=== PATIENT | female | born 1945 | race Caucasian/White ===

== ENCOUNTER 2016-07-27 07:37 | Inpatient (IN) ==
--- NOTE | 2016-07-27 08:33 | History and Physical Update ---
Sedation H&P Update - History and Physical H&P was reviewed, the patient examined and there: are no changes in the patients condition since last H&P was completed. (The patient reports today for CT guided left lung biopsy. The patient has been off Plavix for one week.) - Dictation Physical: refer to scanned H&P - Sedation Plan for Sedation: minimal Patient Consent: Procedure disscussed with patient and patinet has consented., Risks and benefits were discussed with patient,including infection,, bleeding, injury to surrounding structures, seizure, temporary nerve, Patient understands and accepts potential risks/benefits and agrees to, proceed. ASA Class: I Airway Assessment: Class I: Soft palate, uvula, fauces, pillars visible
[2016-07-27] MEDS: SODIUM CHLORIDE 0.45% 1,000 ML IV SCH ×2 (08:55→20:19)
[2016-07-27] MEDS ORDERED: DIAZEPAM 5 MG TABLET PO ONE (08:59)
[2016-07-27 09:09] LABS: PT Patient Result 10.1 SECS
[2016-07-27] MEDS ORDERED: DIAZEPAM 5 MG TABLET ONE (09:48)
--- NOTE | 2016-07-27 11:58 | XRay Report ---
History: Left lung mass now post lung biopsy Date: 07/27/2016 Study: Chest x-ray post procedure inspiration/expiration Comparison exam: CT chest June 24, 2016 There is a small left apical pneumothorax measuring roughly 5%. There is some patchy postbiopsy change in the left upper lung. There is no mediastinal shift. The lungs and pleural spaces are otherwise clear. The cardiac silhouette is upper normal in size. There is mild thoracic spondylosis. Impression: Small left apical pneumothorax post biopsy. The patient will have a 3 hour follow-up postprocedure chest x-ray. PROCEDURE INTERPRETED AT [facility] DEPARTMENT OF RADIOLOGY Final Report Signed by: Dr. Odalys Unger
--- NOTE | 2016-07-27 12:12 | Post Interventional Procedure ---
Pre-op diagnosis: Left upper lung nodule Post-op diagnosis: same Procedure: CT-guided left upper lung biopsy Radiologist: Odalys Unger Anesthesia: local Specimens: other (2 20 gauge core samples ssnt to Pathology) Estimated blood loss: none Condition: stable Description/Findings: A formal timeout was performed. Patient was placed prone on the CT table and gaming director imaging obtained. The dorsal skin overlying the target lesion was prepped and draped in a sterile fashion. 5 cc 1% lidocaine was injected. Under CT fluoroscopic guidance, a 19-gauge guide needle was advanced into the lesion. Two 20-gauge core biopsies were obtained. Specimen was sent for routine pathology. The needle was removed and final CT imaging showed small less than 5% pneumothorax. Patient tolerated the procedure well. Impression: CT-guided biopsy left upper lobe lung nodule Assessment and Plan - Time spent with patient Time spent with patient: Less than 30 minutes
--- NOTE | 2016-07-27 12:15 | CT Report ---
History: Left upper lung nodule Date: 07/27/2016 Study: CT-guided left upper lung biopsy Comparison exam: CT chest June 24, 2016 CT-GUIDED BIOPSY LEFT UPPER LUNG Description: A formal timeout was performed. Patient was placed prone on the CT table and medical scribe imaging obtained. The dorsal skin overlying the target lesion was prepped and draped in a sterile fashion. 5 cc 1% lidocaine was injected. Under CT fluoroscopic guidance, a 19-gauge guide needle was advanced into the lesion. Two 20-gauge core biopsies were obtained. Specimen was sent for routine pathology. The needle was removed and final CT imaging showed small less than 5% pneumothorax. Patient tolerated the procedure well. Impression: CT-guided biopsy left upper lobe lung nodule. This CT exam was performed using one or more the following dose reduction techniques: Automated exposure control, adjustment of the MA and/or KV according to patient size, or use of iterative reconstruction technique. PROCEDURE INTERPRETED AT [facility] DEPARTMENT OF RADIOLOGY Final Report Signed by: Dr. Odalys Unger
--- NOTE | 2016-07-27 15:26 | Event Note ---
The previous left-sided pneumothorax has enlarged since earlier study. Chest tube placement and overnight observation are recommended as discussed with the patient. Dr. Tony was also notified of the plan for chest tube placement
--- NOTE | 2016-07-27 15:27 | XRay Report ---
History: Pneumothorax following lung biopsy Date: 07/27/2016 at 2:41 PM Study: Chest x-ray inspiration and expiration Comparison exam: Chest x-ray 07/27/2016 11:42 AM There is a moderate-sized pneumothorax on the left which is increased in size since the earlier study. The chest otherwise unchanged. Impression: Enlarging left-sided pneumothorax PROCEDURE INTERPRETED AT [facility] DEPARTMENT OF RADIOLOGY Final Report Signed by: Dr. Odalys Unger
--- NOTE | 2016-07-27 16:17 | Post Interventional Procedure ---
Pre-op diagnosis: Pneumothorax Post-op diagnosis: same Procedure: CT-guided placement of left chest tube Radiologist: Odalys Unger Anesthesia: local Specimens: none sent Estimated blood loss: none Complications: none Condition: stable Description/Findings: A formal timeout was performed. A left pneumothorax was identified with CT. The left lateral chest wall was prepped and draped in sterile fashion. Under CT guidance, an 8 Telugu pigtail catheter was advanced into the pleural space using trocar technique. A captured CT image documents initial needle position. The left pleural drainage catheter is to be hooked to Pleur-evac drainage. A bandage was placed at the catheter site. The patient tolerated the procedure well. Chest radiograph is pending. Impression: CT-guided placement of left chest tube. Assessment and Plan - Time spent with patient Time spent with patient: Less than 30 minutes
--- NOTE | 2016-07-27 16:20 | CT Report ---
History: Pneumothorax Date: 07/27/2016 Study: CT-guided placement of left chest tube Comparison exam: Chest x-ray earlier today Description: A formal timeout was performed. A left pneumothorax was identified with CT. The left lateral chest wall was prepped and draped in sterile fashion. Under CT guidance, an 8 Kinyarwanda pigtail catheter was advanced into the pleural space using trocar technique. A captured CT image documents initial needle position. The left pleural drainage catheter is to be hooked to Pleur-evac drainage. A bandage was placed at the catheter site. The patient tolerated the procedure well. Chest radiograph is pending. Impression: CT-guided placement of left chest tube. PROCEDURE INTERPRETED AT [facility] DEPARTMENT OF RADIOLOGY Final Report Signed by: Dr. Odalys Unger
--- NOTE | 2016-07-27 17:20 | XRay Report ---
XR chest post procedure Indication: Status post chest tube insertion. Comparison: AP chest 07/27/2016; 1441 hours Technique: Portable AP chest with inspiration and expiration. Findings: Interval placement of percutaneous chest tube within the left lower chest is demonstrated. There is much improved appearance of the left-sided pneumothorax the superior pleural line displaced 15 mm to 16 mm from the inferior margin of the second rib. Left upper lung density is stable. There is no evidence of interval hemorrhage. Lungs otherwise are clear. Heart size and mediastinal contour appears stable. Bones and soft tissues are otherwise stable. Impression: 1. Improved appearance of left-sided pneumothorax. Superior pleural line is displaced 15-16 mm from the inferior margin of the left second rib. 2. Otherwise stable chest. 07/27/2016 5:15 PM PROCEDURE INTERPRETED AT [facility] DEPARTMENT OF RADIOLOGY Final Report Signed by: Dr. Stephon Scott
[2016-07-27] MEDS: HYDROmorphone 2 MG/1 ML VIAL IV PRN ×2 (18:15→21:48)
[2016-07-27] MEDS ORDERED: ONDANSETRON 4 MG/2 ML VIAL IV PRN (20:00)
--- NOTE | 2016-07-27 21:03 | Pulmonology History & Physical ---
Assessment and Plan (1) Pneumothorax, post biopsy, left Status: Acute Assessment and plan: She has had a catheter placed and will watch her for now. Current Visit: Yes (2) Pulmonary nodule Status: Acute Assessment and plan: She had a needle biopsy of the pulmonary nodule. Current Visit: Yes (3) Hypertension Status: Acute Assessment and plan: Her vital signs been stable and she is reasonably comfortable now Current Visit: Yes - Constitutional Constitutional: Absent: chills, fever(s), weight loss - EENT Eyes: Absent: loss of vision Ears: Absent: decreased hearing Nose, mouth and throat: Present: headache(s), nasal congestion - Cardiovascular Cardiovascular: Present: chest pain at rest, dyspnea. Absent: orthopnea, palpitations, PND - Respiratory Respiratory: Absent: hemoptysis, wheezing, change in phlegm color - Gastrointestinal Gastrointestinal: Absent: abdominal pain, change in bowel habits, dysphagia, nausea, vomiting - Genitourinary Genitourinary: Absent: difficulty urinating, dysuria, urinary frequency - Musculoskeletal Musculoskeletal: Present: arthralgias, myalgias - Neurological Neurological: Present: headache(s). Absent: abnormal speech, focal weakness, paresthesias History of Present Illness Chief complaint: Left pneumothorax History of present illness: Ms. Gill is a 70 year old white female that apparently was found to have a pulmonary nodule in her left upper lobe. She is lifetime non-smoker and is not really had any lung problems. The pulmonary nodule was lightly PET positive. Because of this she came in for needle biopsy today. This was done under CT she did develop a pneumothorax afterwards. She has had a catheter placed and will be admitted for observation. She is having quite a bit of discomfort from the small chest tube but her breathing is doing okay. Home Medications Medication Instructions Recorded Confirmed Type Amitriptyline HCl 50 mg PO BEDTIME 07/26/16 07/27/16 History Atenolol 50 mg PO DAILY 07/26/16 07/27/16 History Butalb/Acetaminophen/Caffeine 1 each PO Q4-6H PRN 07/26/16 07/27/16 History [Fioricet 50-300-40 mg Capsule] Clopidogrel [Plavix] 75 mg PO DAILY 07/26/16 07/27/16 History Verapamil HCl [Verapamil ER Cap] 180 mg PO DAILY 05/22/17 05/23/17 History Allergies Allergy/AdvReac Type Severity Reaction Status Date / Time Penicillins Allergy Unknown Unknown/Unable Verified 07/27/16 07:55 to obtain Sulfa (Sulfonamide Allergy Unknown Unknown/Unable Verified 07/27/16 07:55 Antibiotics) to obtain Medical,Surgical,& Family Hx - Medical History Cardio: History of: Hypertension Psychological: No history of: Anxiety Disorders, ADHD, Behavior Problems, Bipolar Disorder, Depression, Previous Suicide Attempt, Psychiatric/Substance Abuse Tx, Schizophrenia, Violent Behavior, Psychiatric Problems Neurology: History of: Cerebrovascular Accident (18 yrs), Migraine No history of: Seizures HEENT: History of: Eye Problem (GLASSES) Respiratory: History of: COPD (DR TORRES) No history of: Respiratory Problems (FLU VAC-NO;PNEU VAC- YES. LEFT LUNG MASS) Genitourinary: History of: Kidney Stones Gastrointestinal: History of: GI Problems (GALLBLADDER) Musculoskeletal: History of: Musculoskeletal Problems (LT KNEE OA) - Surgical History HEENT Surgeries: Surgical HX of: Tonsilectomy & Adenoidectomy Abdominal Surgeries: Surgical HX of: Colonoscopy (DR BRAXTON) Reproductive Surgeries: Surgical HX of;: Hysterectomy (PARTIAL) Orthopedic Surgeries: Surgical HX of;: Orthopedic Surgery (LT CARPAL TUNNEL) - Social History Smoking Status: Never smoker Frequency of Alcohol Use: None Type of Drug Use: None Results - Diagnostic Findings Procedure: Chest x-ray: image reviewed by me, report reviewed by me (Chest x- ray showed about a 30% pneumothorax after the procedure.) Quality Measures - Stroke Symptom Onset Unknown: No Exam (Pulmonay) H&P - Constitutional Vitals: Period Temp Pulse Resp BP Sys/Noble Pulse Ox Last 24 Hr 97.1 F-98.8 F 46-68 14-20 98-159/45-80 93-98 General appearance: normal weight, mild distress (She has mild discomfort with a chest tube) - Head Head exam: Present: normal inspection, normocephalic - Eye Eye exam: Present: EOMI. Absent: scleral icterus Pupils: Present: ERIK - ENT ENT exam: Present: normal exam - Neck Neck exam: Present: normal inspection. Absent: lymphadenopathy, thyromegaly - Respiratory Respiratory exam: Present: decreased breath sounds (She has very mild decreased breath sounds on the left. She has a pneumothorax catheter in place.). Absent : rhonchi, wheezes - Cardiovascular Cardiovascular exam: Present: regular rate and rhythm. Absent: gallop, systolic murmur - GI/Abdominal GI/Abdominal exam: Present: normal bowel sounds, soft. Absent: organomegaly, tenderness - Extremities Exam Extremities exam: Absent: calf tenderness, edema - Neurological Exam Neurological exam: Present: alert, oriented X3, CN II-XII intact - Psychiatric Psychiatric exam: Present: normal affect - Skin Skin exam: Present: warm, dry
[2016-07-27] MEDS ORDERED: BUTALBITAL/ACETAMIN/CAFFEINE 50-325-40 MG TABLET PO PRN (21:07)
[2016-07-27] MEDS: AMITRIPTYLINE 50 MG TABLET PO SCH (21:48)
[2016-07-28] MEDS: HYDROmorphone 2 MG/1 ML VIAL IV PRN ×3 (05:34→16:20)
--- NOTE | 2016-07-28 08:58 | Event Note ---
No evidence of pneumothorax on this mornings chest xray. Will have the nurses clamp the tube and repeat chest xray at noon.
--- NOTE | 2016-07-28 09:02 | XRay Report ---
History: Pneumothorax following lung biopsy Date: 07/28/2016 at 8:33 AM Study: Chest x-ray PA and lateral Comparison exam: 07/27/2016 The left basilar chest tube is still in place. There is no evidence of a pneumothorax. The postbiopsy change in the left upper lung has improved. There is no new or worsening infiltrate. The cardiomediastinal silhouette is unchanged. There is mild strandy subsegmental atelectasis in the left lung base. Osseous structures are stable. Impression: No evidence of a pneumothorax PROCEDURE INTERPRETED AT [facility] DEPARTMENT OF RADIOLOGY Final Report Signed by: Dr. Odalys Unger
[2016-07-28] MEDS: SODIUM CHLORIDE 0.45% 1,000 ML IV SCH (09:19)
[2016-07-28] MEDS: ATENOLOL 50 MG TABLET PO SCH (09:19)
[2016-07-28] MEDS: VERAPAMIL SR 180 MG TABLET PO SCH (09:19)
--- NOTE | 2016-07-28 09:39 | Pulmonology Progress Note ---
Pulmonary - PN: Subj Interval history: This 70-year-old white female had a left upper lobe 1.5 cm lung nodule that showed increased uptake on PET scan. It was actually borderline as far as being hot. It was not calcified. She had some other calcified areas suggesting granulomatous disease. We decided to have her have a needle biopsy. That was done yesterday. She developed a pneumothorax. She has a left pleural catheter in place. Chest x-ray this morning shows a lung well expanded. Dr. Unger has clamped the chest tube and will see if the lung stays up. Hopefully she can be discharged later today. She is having some pleuritic pain on the left side. Hopefully this will resolve with removal of the chest tube. Pathology report is not out yet on the needle biopsy. Exam (Progress Note) - Constitutional Vitals: Period Temp Pulse Resp BP Sys/Noble Pulse Ox Last 24 Hr 97.1 F-98.8 F 46-70 14-20 98-159/45-80 93-98 Exam: Patient is alert. Vital signs normal. Pupils react to light. Throat is clear. Neck supple no bruits. Chest reveals a few rhonchi on the left side. The right lung is clear. Heart normal rate and rhythm no murmurs. Abdomen soft no masses. Extremities no clubbing cyanosis or edema. Calves nontender. Results - Diagnostic Findings Procedure: Chest x-ray: image reviewed by me (Pleural catheter on left side. Left lung fully expanded.) Assessment and Plan (1) Pneumothorax, post biopsy, left Status: Acute Assessment and plan: Chest x-ray to be done around noon with the pleural catheter clamped. Hopefully it can be removed at that time. If pneumothorax recurs suction will need to be reapplied. Patient does need some pain medication Current Visit: Yes (2) Pulmonary nodule Status: Acute Assessment and plan: Left upper lobe noncalcified slightly PET + 1.5 cm nodule. Patient has never been a smoker. Pathology should be out today or tomorrow. Current Visit: Yes Specialty Discharge - Follow Up or Referrals Follow up with: Bart Lane MD [Physician] - (follow up as scheduled or office will call with results. )
--- NOTE | 2016-07-28 12:47 | Pathology Report from [facility] ---
[facility] ACCESSION # : [id number] PATIENT NAME : Erma Buckner ORDERING DR : KARL SCHWARZ MD CLINICAL HX: Mildly hyper metabolic on PET scan - Left SPN POST-OP DX: Same SPECIMEN INFO: Left lung mass, ok cut CT biopsy x 2 GROSS DESCRIPTION: Received in formalin labeled ERMA BUCKNER & LT LUNG MASS are two wedge shaped tissue fragments measuring 1.3 x 0.1 cm each, submitted in one cassette. DIAGNOSIS FOR ERMA BUCKNER: LEFT LUNG MASS BIOPSY: Well-differentiated pulmonary adenocarcinoma, lepidic pattern. COLLECTED DATE: 07/27/2016 [facility] REPORT DATE: 07/28/2016 ELECTRONICALLY SIGNED BY: Caroline Larose M.D. 07/28/2016 - 10:45:02 JAMILAH
--- NOTE | 2016-07-28 12:55 | XRay Report ---
History: Pneumothorax. Chest tube clamped Follow-up chest x-ray Date: 07/28/2016 at 12:29 PM Study: Chest x-ray PA and lateral Comparison exam: 07/28/2016 at 8:33 AM Initial chest x-ray was performed after chest tube has been clamped for 4 hours. There is no pneumothorax. There is some minor soft tissue emphysema in the lower left chest wall laterally adjacent to the pigtail drainage catheter. Following chest tube removal, no pneumothorax is seen. Exam is otherwise unchanged. Impression: No evidence of a pneumothorax following chest tube removal PROCEDURE INTERPRETED AT [facility] DEPARTMENT OF RADIOLOGY Final Report Signed by: Dr. Odalys Unger
--- NOTE | 2016-07-28 13:00 | Event Note ---
No pneumothorax following chest tube removal. Patient reports less chest discomfort. Will allow patient to go home this afternoon.
--- NOTE | 2016-07-28 16:25 | Event Note ---
The pathology report has returned on the needle biopsy and it shows adenocarcinoma. It is in the left upper lobe and approximately 1.5 cm in size. She has some other tiny nodules that are mostly calcified and probably old granulomatous disease. There is no demonstrated adenopathy on CT. Patient is a non-smoker. I think this is likely stage I disease. I have talked with the patient and her daughter. They are interested in proceeding with surgery as soon as it can be done. I discussed the case with Dr. Yu, and he is going to see the patient this afternoon. She currently has been off Plavix for 8 days. She had a small stroke about 16 years ago and has been on Plavix ever since that time. She is of course worried about having another stroke. I think it would be best if we could proceed with resection of the left upper lobe tumor while she is holding at this time. Would leave the decision to Dr. Jeannie Cordon as to whether to do this with video-assisted thoracic surgery and a wedge resection versus a left upper lobectomy.
--- NOTE | 2016-07-28 18:25 | Cardiothoracic Consult ---
Assessment and Plan - Time spent with patient Time spent with patient: Greater than 30 minutes (1) Pneumothorax, post biopsy, left Status: Acute Current Visit: Yes (2) Pulmonary nodule Status: Acute Assessment and plan: 62-year-old female with clinical stage I left upper lobe lung cancer. The patient had a CT scan and the PET scan which showed the lesion however it was negative for any lymphadenopathy. The patient was admitted for pneumothorax after the needle biopsy. I discussed risks and benefits and alternatives of VATS left upper lobectomy with mediastinal lymph node dissection with the patient. The patient and her daughter understand and they are willing willing and eager to proceed. I would first obtain pulmonary function test results from Dr. Lane as well as a cardiology clearance prior to proceeding with the surgery. This was also discussed with the patient. Current Visit: Yes History of Present Illness - Data of Consult Patient: new to practice Consult date: 07/28/16 Requesting Physician: Bart Lane - Consult Narrative Reason for consult: Left upper lobe lung cancer History of present illness: Ms. Gill is a 70 year old female who was found to have a left upper lobe lesion on chest x-ray. She had no symptoms. She denies cough or hemoptysis. A CAT scan was obtained which confirmed the presence of 1.8 cm lesion in the left upper lobe. A PET scan was obtained and it showed minimal avidity however a biopsy was taken and path showed non-small cell lung cancer specifically adenocarcinoma. No lymph nodes were noted. The patient was admitted for observation as she was noted to have some pneumothorax after the procedure. Of note the patient did have CVA 16 years ago and she has been on Plavix since. She has a completely occluded right carotid artery and no disease noted on the left carotid artery on a CT angiogram obtained a few months ago by Dr. Pires. CC: Bart Lane MD - Home Medications and Allergies Home Medications: Home Medications Medication Instructions Recorded Confirmed Type Amitriptyline HCl 50 mg PO BEDTIME 07/26/16 07/27/16 History Atenolol 50 mg PO DAILY 07/26/16 07/27/16 History Butalb/Acetaminophen/Caffeine 1 each PO Q4-6H PRN 07/26/16 07/27/16 History [Fioricet 50-300-40 mg Capsule] Clopidogrel [Plavix] 75 mg PO DAILY 07/26/16 07/27/16 History Verapamil HCl [Verapamil ER Cap] 180 mg PO DAILY 07/26/16 07/27/16 History Allergies/Adverse Reactions: Allergies Allergy/AdvReac Type Severity Reaction Status Date / Time Penicillins Allergy Unknown Unknown/Unable Verified 07/27/16 07:55 to obtain Sulfa (Sulfonamide Allergy Unknown Unknown/Unable Verified 07/27/16 07:55 Antibiotics) to obtain 12 point system: reviewed and no additional remarkable complaints except as stated (HPI) Medical,Surgical,& Family Hx - Medical History Cardio: History of: Hypertension Psychological: No history of: Anxiety Disorders, ADHD, Behavior Problems, Bipolar Disorder, Depression, Previous Suicide Attempt, Psychiatric/Substance Abuse Tx, Schizophrenia, Violent Behavior, Psychiatric Problems Neurology: History of: Cerebrovascular Accident (16 yrs), Migraine No history of: Seizures HEENT: History of: Eye Problem (GLASSES) Respiratory: History of: COPD (DR LANE) No history of: Respiratory Problems (FLU VAC-NO;PNEU VAC- YES. LEFT LUNG MASS) Genitourinary: History of: Kidney Stones Gastrointestinal: History of: GI Problems (GALLBLADDER) Musculoskeletal: History of: Musculoskeletal Problems (LT KNEE OA) - Surgical History HEENT Surgeries: Surgical HX of: Tonsilectomy & Adenoidectomy Abdominal Surgeries: Surgical HX of: Colonoscopy (DR BRAXTON) Reproductive Surgeries: Surgical HX of;: Hysterectomy (PARTIAL) Orthopedic Surgeries: Surgical HX of;: Orthopedic Surgery (LT CARPAL TUNNEL) - Social History Smoking Status: Never smoker Frequency of Alcohol Use: None Type of Drug Use: None Physical Examination Vital Signs Pulse Resp BP Pulse Ox 57 L 18 130/71 95 07/27/16 09:52 07/27/16 09:52 07/27/16 09:52 07/27/16 09:52 General: Present: Appears Well HEENT: Present: PERRL Neck: Present: Supple Neck Cardiac: Present: Reg Rate and Rhythm Lungs: Present: Normal Exam, Clear Ascult./Percussion Neuro: Present: Cranial Nerve 2-12 Intact Abdomen: Present: Soft, Active Bowel Sounds Skin: Present: Clear Quality Measures - Stroke Symptom Onset Unknown: No Specialty Discharge - Follow Up or Referrals Follow up with: Bart Lane MD [Physician] - (follow up as scheduled or office will call with results. )
[2016-07-28] MEDS: AMITRIPTYLINE 50 MG TABLET PO SCH (20:33)
[2016-07-29 06:34] LABS: Calcium 8.8 MG/DL (8.5-10.1); Osmolality,Calculated 273.7 MOS/KG (273-304); Potassium 4.3 MMOL/L (3.5-5.1)
[2016-07-29 06:47] LABS: Basophils % 0.4 % (0.0-0.8); Eosinophils # 0.1 10*3/uL (0.0-0.87); Hemoglobin 11.1 GM/DL (12.0-16.0); Immature Granulocytes % 0.3 %; Immature Granulocytes Absolute 0.03 #; Lymphocytes # 2.5 10*3/uL (1.4-4.0); Mean Corpuscular HGB Conc 33.6 GM/DL (32-36); Mean Corpuscular Hemoglobin 35 PG (27-34); Mean Corpuscular Volume 102.8 FL (87-102); Mean Platelet Volume 11.8 FL (9.6-12.0); Monocytes # 1.4 10*3/uL (0.11-0.8); Monocytes % 14.2 % (1.7-12.7); Neutrophils # 5.6 10*3/uL (1.4-7.4); Neutrophils % 58.1 % (38.7-73.9); Platelet Count 160 T/CUMM (130-400); Red Blood Count 3.21 MC/CUMM (3.8-5.5); Red Cell Distribution Width 13.3 % (9.3-17.3); White Blood Count 9.6 T/CUMM (4-12)
[2016-07-29 07:17] LABS: ABG HCO3 25.3 MMOL/L (20-26); ABG PCO2 43.6 MM HG (35-48); ABG PH 7.389 (7.35-7.45); ABG PO2 62.3 MM HG (80-95)
[2016-07-29 07:18] LABS: ABG Base Excess 1.1 MMOL/L (-2.5-2.5); ABG TCO2 23.7 MMOL/L (23-27)
[2016-07-29] MEDS: VERAPAMIL SR 180 MG TABLET PO SCH (09:27)
[2016-07-29] MEDS: ATENOLOL 50 MG TABLET PO SCH (09:27)
--- NOTE | 2016-07-29 12:16 | Pulmonology Progress Note ---
Pulmonary - PN: Subj Interval history: This 70-year-old white female had a left upper lobe 1.5 cm lung nodule that showed increased uptake on PET scan. It was actually borderline as far as being hot. It was not calcified. She had some other calcified areas suggesting granulomatous disease. We decided to have her have a needle biopsy. That was done yesterday. She developed a pneumothorax. She has a left pleural catheter in place. Chest x-ray this morning shows a lung well expanded. Dr. Unger has clamped the chest tube and will see if the lung stays up. Hopefully she can be discharged later today. She is having some pleuritic pain on the left side. Hopefully this will resolve with removal of the chest tube. Pathology report is not out yet on the needle biopsy. 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 Thoracic surgery is seeing and plans thoracotomy when she can be evaluated. Cardiology is to see today. We hope she can get a cardiac screen done today so that surgery can be done tomorrow. She is still having some pleuritic pain on the left side and some hypoxemia. Will repeat chest x-ray. Patient had PFT in office less than a month ago. Having them to fax it here today. Will review. She does not have significant underlying chronic lung disease. She is a non-smoker. Exam (Progress Note) - Constitutional Vitals: Period Temp Pulse Resp BP Sys/Noble Pulse Ox Last 24 Hr 96.4 F-98.7 F 64-84 14-18 111-134/61-69 88-96 Exam: Patient is alert. Vital signs normal. Pupils react to light. Throat is clear. Neck supple no bruits. Chest reveals a few rhonchi on the left side. The right lung is clear. Heart normal rate and rhythm no murmurs. Abdomen soft no masses. Extremities no clubbing cyanosis or edema. Calves nontender. Little change from yesterday. Results - Labs CBC & BMP: 07/29/16 04:00 07/29/16 04:00 Lab Results: I have reviewed the past 24 hour labs Assessment and Plan (1) Pneumothorax, post biopsy, left Status: Acute Assessment and plan: Chest x-ray to be done around noon with the pleural catheter clamped. Hopefully it can be removed at that time. If pneumothorax recurs suction will need to be reapplied. Patient does need some pain medication 07/29/2016 pneumothorax had resolved when pleural catheter was removed yesterday. She is still having some pleuritic pain. Will repeat chest x-ray this morning. Current Visit: Yes (2) Pulmonary nodule Status: Acute Assessment and plan: Left upper lobe noncalcified slightly PET + 1.5 cm nodule. Patient has never been a smoker. Pathology should be out today or tomorrow. 07/29/2016 pathology report shows adenocarcinoma felt to be lung primary. Thoracic surgery has been consulted and plans are being made for surgery. She is to have cardiac evaluation hopefully today, so that she could get surgery tomorrow if possible. Current Visit: Yes Specialty Discharge - Follow Up or Referrals Follow up with: Bart Lane MD [Physician] - (follow up as scheduled or office will call with results. )
--- NOTE | 2016-07-29 12:19 | Neurology Consult Note ---
History of Present Illness History of present illness: Ms. Gill is a 70 year old right-handed white lady well known to me with past medical history significant for CVA 16-17 years ago, chronic migraine headaches who was found to have a left upper lobe lesion on chest x-ray. She had no symptoms. She denies cough or hemoptysis. A CAT scan was obtained which confirmed the presence of 1.8 cm lesion in the left upper lobe. A PET scan and a biopsy was taken and pathology showed non-small cell lung cancer specifically adenocarcinoma. No lymph nodes were noted. The patient was admitted for observation as she was noted to have some pneumothorax after the procedure. 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 Patient has been admitted for further management with possible surgical resection. Stroke while she has been asymptomatic for last 16-17 years. It will be totally safe to stop Plavix for the surgery. She is clear for surgery from neuro standpoint. Home Medications Medication Instructions Recorded Confirmed Type Amitriptyline HCl 50 mg PO BEDTIME 07/26/16 07/27/16 History Atenolol 50 mg PO DAILY 07/26/16 07/27/16 History Butalb/Acetaminophen/Caffeine 1 each PO Q4-6H PRN 07/26/16 07/27/16 History [Fioricet 50-300-40 mg Capsule] Clopidogrel [Plavix] 75 mg PO DAILY 07/26/16 07/27/16 History Verapamil HCl [Verapamil ER Cap] 180 mg PO DAILY 07/26/16 07/27/16 History Allergies Allergy/AdvReac Type Severity Reaction Status Date / Time Penicillins Allergy Unknown Unknown/Unable Verified 07/27/16 07:55 to obtain Sulfa (Sulfonamide Allergy Unknown Unknown/Unable Verified 07/27/16 07:55 Antibiotics) to obtain 12 point system: reviewed and no additional remarkable complaints except as stated Medical,Surgical,& Family Hx - Medical History Cardio: History of: Hypertension Psychological: No history of: Anxiety Disorders, ADHD, Behavior Problems, Bipolar Disorder, Depression, Previous Suicide Attempt, Psychiatric/Substance Abuse Tx, Schizophrenia, Violent Behavior, Psychiatric Problems Neurology: History of: Cerebrovascular Accident (16 yrs), Migraine No history of: Seizures HEENT: History of: Eye Problem (GLASSES) Respiratory: History of: COPD (DR LANE) No history of: Respiratory Problems (FLU VAC-NO;PNEU VAC- YES. LEFT LUNG MASS) Genitourinary: History of: Kidney Stones Gastrointestinal: History of: GI Problems (GALLBLADDER) Musculoskeletal: History of: Musculoskeletal Problems (LT KNEE OA) - Surgical History HEENT Surgeries: Surgical HX of: Tonsilectomy & Adenoidectomy Abdominal Surgeries: Surgical HX of: Colonoscopy (DR BRAXTON) Reproductive Surgeries: Surgical HX of;: Hysterectomy (PARTIAL) Orthopedic Surgeries: Surgical HX of;: Orthopedic Surgery (LT CARPAL TUNNEL) - Social History Smoking Status: Never smoker Frequency of Alcohol Use: None Type of Drug Use: None Exam - Constitutional Vitals: Period Temp Pulse Resp BP Sys/Noble Pulse Ox Last 24 Hr 96.4 F-98.7 F 64-84 14-18 111-134/61-69 88-96 Exam: GENERAL: Patient is in no acute distress. NECK: Neck is supple. There is no JVD. No carotid bruits present. No thyroid masses. CVS: First and second heart sounds are normal. There is no S3 present. Regular rate and rhythm. RESPIRATORY: Lungs are clear to auscultation without any rales or rhonchi. ABDOMEN: Soft and non-tender. Bowel sounds are present. There is no hepatosplenomegaly. EXT: There is no palpable edema. Peripheral pulses are present. Skin: No rashes Central Nervous system: General: Alert, awake and Oriented x 3 Speech: Fluent Comprehension: Intact and normal Facial expressions: Normal Cranial Nerves: CN1/Olfactory: Normal CN II/ Optic: Normal, Visual [place] unreliable CN III, and : ERIK & EOMI CN V: Normal & intact CN VII: face is symmetric CNVIII: Normal CN XI/X/XI/XII: Intact and Normal Motor: Bulk and Tone is normal. Strength in the right 5/5 Strength in the left 5/5 Sensory: Grossly intact for all the modalities of PP, LT and temp sense Reflexes: 1+ and symmetrical Cerebellar function: Normal finger to nose and heel to bhakta testing. Toes: Equivocal Gait: Normal heel to heel and toe to toe and tandem walk. Results - Labs CBC & BMP: 07/29/16 04:00 07/29/16 04:00 Assessment and Plan (1) History of CVA (cerebrovascular accident) Status: Acute Assessment and plan: Patient had a stroke 16-17 years ago. She is totally asymptomatic ever since. Cleared from neuro standpoint for surgery and okay to stop Plavix. Hopefully will resume Plavix back after the surgery. Current Visit: Yes (2) Adenocarcinoma, lung Status: Acute Assessment and plan: For surgery in next day or 2. Thank you for the consultation Current Visit: Yes Specialty Discharge - Follow Up or Referrals Follow up with: Bart Lane MD [Physician] - (follow up as scheduled or office will call with results. )
--- NOTE | 2016-07-29 14:05 | XRay Report ---
XR chest 2V Date: 07/29/2016 8:05 AM History: Follow-up left pneumothorax Comparison: 07/28/2016 Technique: PA and lateral chest Findings: The heart is normal in size with uncoiling of the aorta. Residual minute pneumothorax at the left lung apex. Persistent diffuse parenchymal opacity lung bases with small pleural effusions. The ill-defined density in the left upper lobe appears minimally smaller in size. Persistent minimal subcutaneous emphysema with degenerative changes. Impression: Residual minute pneumothorax at the left lung apex. The ill-defined parenchymal finding in the left upper lobe appears minimally smaller in size. Persistent diffuse atelectasis/infiltration of the lung bases with small pleural effusions. Follow-up chest x-ray recommended. PROCEDURE INTERPRETED AT [facility] DEPARTMENT OF RADIOLOGY Final Report Signed by: Dr. Homa Blair
--- NOTE | 2016-07-29 14:05 | EKG Report ---
Stationary ECG Study [facility] Test Date: 07/29/2016 9:18:24 AM Pat Name: ERMA BUCKNER Department: Room: [facility] Gender: F Home Help Aide: TANA : 1945 Requested by: Bart Lane Order Number: [id number] Reading MD: HILLARY NEVAREZ Intervals [place] Rate: 90 P: 49 DC: 145 QRS: 40 QRSD: 90 T: 10 QT: 335 QTc: 382 Interpretive Statements SINUS RHYTHM Electronically Signed On 08-01-16 15:22:26 CDT by HILLARY NEVAREZ [email or web address]
--- NOTE | 2016-07-29 15:33 | Cardiothoracic Progress Note ---
Assessment and Plan (1) Pneumothorax, post biopsy, left Status: Acute Current Visit: Yes (2) Pulmonary nodule Status: Acute Assessment and plan: 62-year-old female with clinical stage I left upper lobe lung cancer. The patient had a CT scan and the PET scan which showed the lesion however it was negative for any lymphadenopathy. The patient was admitted for pneumothorax after the needle biopsy. I discussed risks and benefits and alternatives of VATS left upper lobectomy with mediastinal lymph node dissection with the patient. The patient and her daughter understand and they are willing willing and eager to proceed. I would first obtain pulmonary function test results from Dr. Lane as well as a cardiology clearance prior to proceeding with the surgery. This was also discussed with the patient. Current Visit: Yes Exam (Progress Note) - Constitutional Vitals: Period Temp Pulse Resp BP Sys/Noble Pulse Ox Last 24 Hr 97.7 F-98.7 F 58-84 14-18 111-134/61-69 88-95 Result/EKG - Labs CBC & BMP: 07/29/16 04:00 07/29/16 04:00 Labs: Laboratory Results - last 24 hr 07/29/16 07/29/16 07/29/16 04:00 04:00 04:05 WBC 9.6 RBC 3.21 L Hgb 11.1 L Hct 33.0 L MCV 102.8 H MCH 35 H MCHC 33.6 RDW 13.3 Plt Count 160 MPV 11.8 Neut % (Auto) 58.1 Lymph % (Auto) 26.0 Mayes % (Auto) 14.2 H Eos % (Auto) 1.0 Baso % (Auto) 0.4 Neut # (Auto) 5.6 Lymph # (Auto) 2.5 Mayes # (Auto) 1.4 H Eos # (Auto) 0.1 Baso # (Auto) 0.0 Immature Gran % 0.3 Nucleated RBC % 0.0 Immature Gran # 0.03 Nucleated RBCs # 0.00 ABG pH 7.389 ABG pCO2 43.6 ABG pO2 62.3 L ABG HCO3 25.3 ABG Total CO2 23.7 ABG O2 Saturation 92.0 L ABG Base Excess 1.1 Sodium 138 Potassium 4.3 Chloride 101 Carbon Dioxide 30 Anion Gap 11.3 BUN 9 Creatinine 0.70 GFR Calculation 96 BUN/Creatinine Ratio 12.00 Glucose 104 Calculated Osmolality 273.7 Calcium 8.8 Quality Measures - Stroke Symptom Onset Unknown: No Specialty Discharge - Follow Up or Referrals Follow up with: Bart Lane MD [Physician] - (follow up as scheduled or office will call with results. )
[2016-07-29] MEDS ORDERED: REGADENOSON 0.4 MG/5 ML SYRINGE IV ONE (15:40)
--- NOTE | 2016-07-29 15:56 | Event Note ---
Patient underwent Cardiolite stress testing for pre-operative cardiac risk assessment. She attempted treadmill portion and achieved stage II Selvin protocol but was transitioned to Lexiscan due to moderate dyspnea on exertion with fatigue along with left knee arthritic pain. She had no chest pain, heaviness, or tightness. No dizziness or syncope. No arrhythmia noted. Mild ST depression in aVF, improved appropriately with rest. Appropriate blood pressure response. She was then transitioned to nuclear medicine for final scan. Dr. Marr to read, interpret, and advise.
--- NOTE | 2016-07-29 19:26 | Nuclear Medicine Report ---
Date: 07/29/2016 REFERRING: Evelyn Marr MD INTERPRETING: Evelyn Marr MD INDICATION: A 70-year-old female with shortness of breath, undergoing preoperative risk assessment. PROCEDURE: The patient underwent nuclear stress test initially per Selvin protocol. A 10 mCi of Tech netium-99 were injected for rest imaging. Subsequently, the patient was exercise per Selvin protocol, but was unable to continue exercise to target heart rate due to dyspnea and leg pain. She then was converted to Lexiscan, receiving Lexiscan 0.4 mg IV followed by 30 mCi of Technetium-99 for stress im aging. EKG INTERPRETATION: The EKG interpretation was supervised by Jamia Marvin and reviewed by me. The pa aubrey did not have any arrhythmias, ST changes. SPECT IMAGES: SPECT images were obtained in the short axis, horizontal and vertical long axis with g ating. Ejection fraction is 73%, end-diastolic volume is 74 mL, end-systolic volume is 20 mL, and st roke volume is 54 mL. Overall, wall motion is grossly normal. At rest, there is a small extent mild intensity perfusion defect noted in the distal anterior wall. With stress imaging, there is again a very mild intensity, small extent perfusion defect from the dis khushbu anterior wall that is smaller and less intense than with rest. No new radiotracer defects develo ped. IMPRESSION: 1. NORMAL LEFT VENTRICULAR SYSTOLIC FUNCTION. 2. POOR EXERCISE TOLERANCE. 3. SMALL EXTENT MILD INTENSITY FIXED PERFUSION DEFECT IN THE DISTAL ANTERIOR WALL BUT IS IMPROVED WI TH STRESS WHEN COMPARED TO REST AND MAY BE ARTIFACTUAL. 4. NO GROSS NUCLEAR EVIDENCE OF REVERSIBLE ISCHEMIA. Procedure performed and interpreted at [facility] Department of Radiology.
[2016-07-29] MEDS: SODIUM CHLORIDE 0.45% 1,000 ML IV SCH (19:42)
--- NOTE | 2016-07-29 20:07 | Cardiology Consult Note ---
Mj Marley Vanessa RN, am scribing for, and in the presence of, Evelyn Marr MD 20:06. Assessment and Plan - Time spent with patient Time spent with patient: Greater than 30 minutes (Due to assessment, planning, documentation, and medication review) (1) Preoperative cardiovascular examination Status: Acute Assessment and plan: SEE PLAN OF CARE LISTED BELOW. Current Visit: Yes (2) Adenocarcinoma, lung Status: Acute Assessment and plan: SEE PLAN OF CARE LISTED BELOW. Current Visit: Yes (3) History of CVA (cerebrovascular accident) Status: Chronic Assessment and plan: SEE PLAN OF CARE LISTED BELOW. Current Visit: Yes (4) Hypertension Status: Chronic Assessment and plan: SEE PLAN OF CARE LISTED BELOW. Current Visit: Yes (5) Pneumothorax, post biopsy, left Status: Acute Assessment and plan: SEE PLAN OF CARE LISTED BELOW. Current Visit: Yes (6) Pulmonary nodule Status: Acute Assessment and plan: SEE PLAN OF CARE LISTED BELOW. Current Visit: Yes History of Present Illness - Data of Consult Patient: new to practice Consult date: 07/29/16 Requesting Physician: Ju Yu - Consult Narrative Reason for consult: preoperative cardiovascular exam History of present illness: PRIMARY SUPERVISOR LITHARGE: DR. MARR ([facility]) PCP: NONE CARDIOLOGY CONSULT NOTE: PREOPERATIVE CARDIOVASCULAR EXAM, LEFT UPPER LOBE CA Ms. Gill is a 70 year old white female who has never had formal cardiac evaluation. Risk factors significant for: age, hypertension. Past medical history includes CVA 16 years ago (left lacunar infarct) for which she has been on Plavix therapy since that time and chronic headache. She has never been a smoker. Family history positive for a father who had congestive heart failure and in his 60s, and a mother who had hypertension. Patient does have a known right internal carotid artery occlusion found during hospital admission for CVA in 2000. There was no surgical intervention necessary at that time, it is routinely followed with CT angiogram. No residual right-sided weakness or other. On June 17, 2016, patient underwent routine CT angiogram of the neck. There was no change/worsening of carotid artery disease, and this is stable. CT angiogram did reveal a 1.8 cm lesion in the left upper lung lobe. PET scan showed slightly positive nodule, and patient was brought in as outpatient on July [address]-guided needle biopsy of the lesion. After biopsy , she did develop a left pneumothorax and required chest tube placement. This is since improved, and chest tube was able to be removed yesterday without recurrence of pneumothorax. Pathology report from needle biopsy positive for adenocarcinoma. She is admitted to the hospital by pulmonary service, and Dr. Lane is following. Dr. Yu has been consulted, and patient is tentatively planned for VATS with wedge resection/left upper lobectomy. Patient has now been off her Plavix for 9 days. Cardiology has been consulted for preoperative cardiovascular exam. It is noted in old records the patient has a normal echocardiogram and a normal Holter monitor in 2000 during hospital admission for CVA. Patient seen and examined. Her daughter Homa Bassett is present with her. In speaking with patient, she does not give me a history that is suspicious for underlying coronary artery disease. Patient is generally active, does frequent heavy shopping, and denies experiencing any exertional chest pain, dyspnea. She does not require frequent with rest breaks. Patient and daughter report that last summer they visited [facility] and walked "all day long" she had no difficulty with this. Denies chest pain or dyspnea at rest. She reports experiencing a fleeting chest pain "maybe a year ago" that did not radiate, had no associated diaphoresis, nausea, dyspnea, presyncope. Discomfort resolved on its own. No recent or current orthopnea, PND, palpitations. No recent cough, fever, chills. No abdominal or epigastric discomfort. She does have some left scapular pleuritic pain from previous chest tube. No hematuria, melena, hematochezia. Reports she had some pink tinged sputum production while completing PFTs earlier this morning. Patient is worried about having to delay surgical intervention for very long as she is worried about having a stroke since she has been off Plavix for 9 days now. Blood pressure is well controlled with systolic BP ranging 101 130 mmHg and diastolic BP ranging 60-80 mmHg. Patient takes verapamil and atenolol for blood pressure. Dr. Hernández prescribes these. Pulse is 60s-70s and regular. EKG this morning reveals sinus rhythm, pulse rate 90, no acute ST segment changes. No overt ectopy, dysrhythmia. Labs reviewed. H&H is stable at 11.1 and 33. Platelet count 160,000. Sodium 138. Potassium 4.3. Creatinine 0.7 with a GFR of 96. ASSESSMENT/PLAN: 1. PREOPERATIVE CARDIOVASCULAR EXAM -the patient was risk stratified with stress testing which has come back negative for ischemia. Overall believe that she is at low intermediate risk of perioperative cardiovascular complications with the planned surgery, and these risks are not prohibitive of proceeding. No further cardiac workup is required prior to proceeding. 2. LEFT LUNG ADENOCARCINOMA -management per Dr. Yu. 3. HYPERTENSION -chronic 4. HISTORY OF CVA -chronic the patient tells me she will be discharged preoperatively because of some equipment failure And will likely undergo surgery early next week. We will sign off then, please feel free to reconsult if needed. CC: Bart Lane MD - Home Medications and Allergies Home Medications: Home Medications Medication Instructions Recorded Confirmed Type Amitriptyline HCl 50 mg PO BEDTIME 07/26/16 07/27/16 History Atenolol 50 mg PO DAILY 07/26/16 07/27/16 History Butalb/Acetaminophen/Caffeine 1 each PO Q4-6H PRN 07/26/16 07/27/16 History [Fioricet 50-300-40 mg Capsule] Clopidogrel [Plavix] 75 mg PO DAILY 07/26/16 07/27/16 History Verapamil HCl [Verapamil ER Cap] 180 mg PO DAILY 07/26/16 07/27/16 History Allergies/Adverse Reactions: Allergies Allergy/AdvReac Type Severity Reaction Status Date / Time Penicillins Allergy Unknown Unknown/Unable Verified 07/27/16 07:55 to obtain Sulfa (Sulfonamide Allergy Unknown Unknown/Unable Verified 07/27/16 07:55 Antibiotics) to obtain 12 point system: reviewed and no additional remarkable complaints except as stated - Constitutional Constitutional: Present: as per HPI - EENT Eyes: Present: as per HPI Ears: Present: as per HPI Nose, mouth and throat: Present: as per HPI - Cardiovascular Cardiovascular: Present: as per HPI - Respiratory Respiratory: Present: as per HPI - Gastrointestinal Gastrointestinal: Present: as per HPI - Genitourinary Genitourinary: Present: as per HPI - Musculoskeletal Musculoskeletal: Present: as per HPI - Neurological Neurological: Present: as per HPI - Psychiatric Psychiatric: Present: as per HPI - Endocrine Endocrine: Present: as per HPI - Hematologic/Lymphatic Hematologic/Lymphatic: Present: as per HPI Medical,Surgical,& Family Hx - Medical History Cardio: History of: Hypertension No history of: Cardiac Dysrhythmia, CHF, CAD, VA, PVD, Valvular Heart Disease Psychological: No history of: Anxiety Disorders, ADHD, Behavior Problems, Bipolar Disorder, Depression, Previous Suicide Attempt, Psychiatric/Substance Abuse Tx, Schizophrenia, Violent Behavior, Psychiatric Problems Neurology: History of: Cerebrovascular Accident (2001- left lacunar infarct), Migraine No history of: Seizures HEENT: History of: Eye Problem (GLASSES) Endocrine: No history of: Diabetes Mellitus (IDDM), Diabetes Mellitus (NIDDM), Dyslipidemia, Thyroid Disorder Respiratory: No history of: Obstructive Sleep Apnea, Pulmonary Hypertension, Respiratory Problems (FLU VAC-NO;PNEU VAC- YES. LEFT LUNG MASS) Genitourinary: History of: Kidney Stones Gastrointestinal: History of: Diverticulitis/ Diverticulosis, GI Problems ( GALLBLADDER) No history of: Gastrointestinal Bleed Musculoskeletal: History of: Musculoskeletal Problems (LT KNEE OA) Hematology: No history of: Anemia, Blood Transfusion Reaction - Surgical History Cardiac Surgeries: Patient Denies: Cardiac Catheterization, Cardiac Surgery, Carotid Endarterectomy, Internal Defibrillator HEENT Surgeries: Surgical HX of: Tonsilectomy & Adenoidectomy Abdominal Surgeries: Surgical HX of: Colonoscopy (DR BRAXTON) Reproductive Surgeries: Surgical HX of;: Hysterectomy (PARTIAL) Orthopedic Surgeries: Surgical HX of;: Orthopedic Surgery (LT CARPAL TUNNEL) - Family History Family History: Reports;: Family Hypertension - Social History Smoking Status: Never smoker Frequency of Alcohol Use: None Type of Drug Use: None Functional capacity: independent ambulation Physical Examination Vital Signs Pulse Resp BP Pulse Ox 57 L 18 130/71 95 07/27/16 09:52 07/27/16 09:52 07/27/16 09:52 07/27/16 09:52 Other: General appearance: normal weight, no acute distress - Head Head exam: Present: normal inspection, normocephalic, atraumatic. Absent: hematoma, laceration - Eye Eye exam: Present: EOMI. Absent: conjunctival injection, nystagmus, periorbital swelling, scleral icterus, laceration to eyelids Pupils: Present: PERRL. Absent: constricted, dilated, fixed, irregular, unequal - ENT ENT exam: Present: normal exam, normal external ear exam - Neck Neck exam: Present: normal inspection. Absent: lymphadenopathy, meningismus, tenderness, thyromegaly - Respiratory Respiratory exam: Present: Crackles in the left base. Absent: accessory muscle use, chest wall tenderness - Cardiovascular Cardiovascular exam: Present: regular rate and rhythm. Absent: carotid bruit, gallop, JVD, rubs - GI/Abdominal GI/Abdominal exam: Present: normal bowel sounds, soft. Absent: distended, firm , guarding, hernia, mass, tenderness, rebound. - Extremities Exam Extremities exam: Present: normal inspection, normal capillary refill. Absent: calf tenderness, edema - Back Exam Back exam: Present: normal inspection. Absent: muscle spasm, vertebral tenderness - Neurological Exam Neurological exam: Present: alert, oriented X3, grossly intact without resting or intention tremor - Psychiatric Psychiatric exam: Present: normal affect, normal mood - Skin Skin exam: Present: normal color, warm, dry, intact. Absent: cyanosis, diaphoretic, rash, urticaria Result/EKG - Labs CBC & BMP: 07/29/16 04:00 07/29/16 04:00 Lab Results: I have reviewed the past 24 hour labs Labs: Laboratory Results - last 24 hr 07/29/16 07/29/16 07/29/16 04:00 04:00 04:05 WBC 9.6 RBC 3.21 L Hgb 11.1 L Hct 33.0 L MCV 102.8 H MCH 35 H MCHC 33.6 RDW 13.3 Plt Count 160 MPV 11.8 Neut % (Auto) 58.1 Lymph % (Auto) 26.0 Rapides % (Auto) 14.2 H Eos % (Auto) 1.0 Baso % (Auto) 0.4 Neut # (Auto) 5.6 Lymph # (Auto) 2.5 Rapides # (Auto) 1.4 H Eos # (Auto) 0.1 Baso # (Auto) 0.0 Immature Gran % 0.3 Nucleated RBC % 0.0 Immature Gran # 0.03 Nucleated RBCs # 0.00 ABG pH 7.389 ABG pCO2 43.6 ABG pO2 62.3 L ABG HCO3 25.3 ABG Total CO2 23.7 ABG O2 Saturation 92.0 L ABG Base Excess 1.1 Sodium 138 Potassium 4.3 Chloride 101 Carbon Dioxide 30 Anion Gap 11.3 BUN 9 Creatinine 0.70 GFR Calculation 96 BUN/Creatinine Ratio 12.00 Glucose 104 Calculated Osmolality 273.7 Calcium 8.8 - EKG EKG results: interpreted by me, no acute changes EKG shows: sinus rhythm Quality Measures - Stroke Symptom Onset Unknown: No Specialty Discharge - Follow Up or Referrals Follow up with: Bart Lane MD [Physician] - (follow up as scheduled or office will call with results. ) I, Evelyn Marr MD, personally performed the services described in this documentation, ascribed by Josette Barker RN in my presence, and it is both accurate and complete .
[2016-07-29] MEDS: AMITRIPTYLINE 50 MG TABLET PO SCH (20:34)
[2016-07-30] MEDS ORDERED: KETOROLAC 30 MG/1 ML VIAL IV ONE (07:33)
--- NOTE | 2016-07-30 07:38 | Discharge Summary ---
Hospital Course - Hospital Course Hospital Course: This 70-year-old white female has a 1.5 cm irregular nodule in her left upper lobe. It was slightly PET positive. No other areas of increased PET uptake. She had a needle biopsy done 3 days ago. Postoperatively she had a pneumothorax which enlarged. A pleural catheter was placed by Dr. Unger in radiology. The pleural catheter was able to be removed the following day after lung was expanded when the catheter was clamped. Pathology came back showing adenocarcinoma, primary of the left lung. There are no signs of metastatic disease. Patient had PFTs done prior to admission showing a forced vital capacity 72% of predicted, FEV1 87% of predicted, and normal diffusion. She had a cardiac screen with treadmill done yesterday. The final report is not out on that but initial reports are that it was okay. She is still having some left pleuritic pain. We are giving her Toradol today and will leave her some [place] 7.5 to take at home. She will return for surgery next . Plan is for a video-assisted thoracic surgery with left upper lobectomy by Dr. Jeannie Cordon. He is making arrangements for the surgery. I have discussed options with the patient and her daughter during this hospitalization. All are in agreement with proceeding with surgery. Diagnosis - Discharge Diagnosis (1) Pneumothorax, post biopsy, left Status: Acute (2) Pulmonary nodule Status: Acute (3) History of CVA (cerebrovascular accident) Status: Chronic (4) Adenocarcinoma, lung Status: Acute Specialty Discharge - Follow Up or Referrals Follow up with: Bart Lane MD [Physician] - (follow up as scheduled or office will call with results. ) Discharge Plan - Discharge Data Disposition: Disch To Home/Self Care Condition at Discharge: Stable Discharge Diet: advance to your usual diet Activity: resume usual activities as tolerated Hygiene: no restrictions Weight Bearing at Discharge: full weight bearing Driving: no restrictions Contact your physician if you experience:: fever over 101, Shortness of breath - Discharge Medications No Action Butalb/Acetaminophen/Caffeine [Fioricet 50-300-40 mg Capsule] 1 each PO Q4- 6H PRN PRN Reason: Pain Verapamil HCl [Verapamil ER Cap] 180 mg PO DAILY Atenolol 50 mg PO DAILY Amitriptyline HCl 50 mg PO BEDTIME Clopidogrel [Plavix] 75 mg PO DAILY - Follow Up or Referral - Forms/Instructions Instructions: Needle Biopsy of the Lung (HELENA), Dwayne Bronchoscopy or Lung Biopsy Additional Discharge Instructions: Patient is to return on for video assisted thoracic surgery with resection left upper lobe. Dr. Yu to make plans for this. Exam - Constitutional Vitals: Period Temp Pulse Resp BP Sys/Noble Pulse Ox Last 24 Hr 97.4 F-98.9 F 58-85 12-20 126-140/65-81 91-92 Exam: Patient is alert. Vital signs normal. Pupils react to light. Throat is clear. Neck supple no bruits. Chest reveals a few rhonchi on the left side. Equal breath sounds. The right lung is clear. Heart normal rate and rhythm no murmurs. Abdomen soft no masses. Extremities no clubbing cyanosis or edema. Calves nontender. Discharge Results Procedures and tests throughout hospitalization: Pending Orders 07/30/16 07:34 XR chest 1V portable Stat - Impressions #1 adenocarcinoma left upper lobe. Appears to be stage I. Plans are for surgical resection with VATS next week. 2. Left pneumothorax complication of needle biopsy of left upper lobe lesion. Treated with pleural catheter which is been removed. Lung expanded. Patient having some pleuritic pain which should subside over the next few days. Chest x -ray is pending prior to her going home today. DS: Provider Date of admission: 07/28/16 17:00 Primary care physician: López Hernández MD Attending physician on admission: Bart Lane MD Consults: 07/29/16 07:50 Consult to Physician [CONS] Routine Comment: CARDIAC CLEARANCE FOR SURGERY Consulting Provider: Jose Roberto Rosado Consulting Provider Notified: Yes When should Consulting Provider be notified: Now Consult to Specialist Group: Cardiology When should Consulting Provider be notified: Now Person Notified: ATTENDING Date Notified: 11/20/15 Time Notified: 10:45 Consult Notification Comment: talked with [place] at 0821 at [facility] 07/29/16 08:01 Consult to Physician [CONS] Routine Comment: Discussed with Dr. Ang Cordon yesterday, he has seen Consulting Provider: Ju Yu Consult to Specialist Group: Cardiothoracic Surgery When should Consulting Provider be notified: Now Person Notified: AWARE Date Notified: 07/29/16 Time Notified: 10:19 07/29/16 08:06 Consult to Physician [CONS] Routine Comment: for thoracotomy, hx of stroke, off plavix Consulting Provider: López Hernández Consult to Specialist Group: Neurology When should Consulting Provider be notified: Now Person Notified: MARTÍNEZ Date Notified: 07/29/16 Time Notified: 10:18 Discharging clinician: Bart Lane MD Expected date of discharge: 07/30/16
[2016-07-30] MEDS: VERAPAMIL SR 180 MG TABLET PO SCH (08:33)
[2016-07-30] MEDS: ATENOLOL 50 MG TABLET PO SCH (08:33)
--- NOTE | 2016-07-30 08:42 | XRay Report ---
Portable chest Date: 07/30/2016 Clinical history: Left pleuritic chest pain, follow-up pneumothorax Comparison: 07/29/2016 Technique: Portable AP sitting chest Findings: The heart is normal in size with uncoiling of the aorta. Residual small left apical pneumothorax. Residual ill-defined density in the left upper lobe. Minimally progressive atelectasis/infiltration at the left lung base with small left pleural effusion. Decreased similar findings at the right lung base. Stable mediastinum and osseous structures. Impression: Residual tiny pneumothorax at the left lung apex. Residual ill-defined parenchymal finding in the left upper lobe. Progressive atelectasis/infiltration at the left lung base with small left pleural effusion. Similar reduced findings at right lung base. PROCEDURE INTERPRETED AT [facility] DEPARTMENT OF RADIOLOGY Final Report Signed by: Dr. Homa Blair
[2016-07-30 10:28] VITALS: BP 155/72
== END 2016-07-30 10:20 | disposition home or self-care, planned readmission (81) | DRG 181 ==
LOC: N.RAD 07:37 → N.SDSINP 07:38 → N.5E 16:43
PROVIDERS: ADMIT Internal Medicine Pulmonary Disease; ATTEND Internal Medicine Pulmonary Disease
PROC: IRGDHTC (2016-07-27 15:35)

== ENCOUNTER 2016-08-05 06:57 | Inpatient (IN) ==
[2016-08-04 15:06] LABS: Basophils # 0.1 10*3/uL (0.0-0.2); Eosinophils # 0.2 10*3/uL (0.0-0.87); Eosinophils % 2.1 % (0.00-10.9); Hematocrit 37.4 VOL% (35.7-47.0); Immature Granulocytes % 0.4 %; Immature Granulocytes Absolute 0.03 #; Lymphocytes # 2.4 10*3/uL (1.4-4.0); Lymphocytes % 28.7 % (21.3-54.2); Mean Corpuscular HGB Conc 34.8 GM/DL (32-36); Mean Corpuscular Hemoglobin 35 PG (27-34); Mean Corpuscular Volume 100.5 FL (87-102); Mean Platelet Volume 10.9 FL (9.6-12.0); Monocytes # 0.9 10*3/uL (0.11-0.8); Monocytes % 11.3 % (1.7-12.7); Neutrophils # 4.7 10*3/uL (1.4-7.4); Neutrophils % 56.5 % (38.7-73.9); Platelet Count 212 T/CUMM (130-400); Red Blood Count 3.72 MC/CUMM (3.8-5.5); White Blood Count 8.3 T/CUMM (4-12)
[2016-08-04 15:20] LABS: PT Patient Result 10.2 SECS; Partial Thromboplastin Time 26.4 SECS (0-40)
[2016-08-04 15:37] LABS: Calcium 9.2 MG/DL (8.5-10.1); Magnesium 2.3 MG/DL (1.8-2.4); Osmolality,Calculated 278.4 MOS/KG (273-304)
[~2016-08-05 06:57] MED LIST: ACETAMINOPHEN INJ 1,000 MG in PREMIX 1 EACH IV ONE; BUPIVACAINE LIPOSOMAL 20 ML/266 MG VIAL INFILTRAT ONE; CEFUROXIME 1,500 MG VIAL ONE; CEFUROXIME INJ 1,500 MG in SODIUM CHLORIDE 0.9% 100 ML IV ONE; LORazepam 1 MG TABLET PO ONE; SODIUM CHLORIDE 0.9% 250 ML IV PRN
[2016-08-05] MEDS ORDERED: LORazepam 1 MG TABLET ONE (07:11)
[2016-08-05] MEDS ORDERED: SODIUM CHLORIDE 0.9% 100 ML IV ONE (07:12)
[2016-08-05] MEDS: LACTATED RINGERS 1,000 ML IV SCH ×2 (07:40→11:30)
--- NOTE | 2016-08-05 07:40 | History and Physical Update ---
History and Physical Update - History and Physical H&P was reviewed, the patient examined and there: are no changes in the patients condition since last H&P was completed. - Dictation Physical: refer to H&P completed by admitting physician
[2016-08-05] MEDS ORDERED: BUPIVACAINE LIPOSOMAL 20 ML/266 MG VIAL ONE (07:46)
[2016-08-05] MEDS ORDERED: TISSUE ADHESIVE 1 EACH APPLICATOR TOP ONE (07:46)
[2016-08-05] MEDS ORDERED: PROPOFOL 200 MG/20 ML VIAL IV ONE (08:20)
[2016-08-05] MEDS ORDERED: ROCURONIUM 100 MG/10 ML VIAL IV ONE (08:20)
[2016-08-05] MEDS ORDERED: GLYCOPYRROLATE 0.4 MG/2 ML VIAL ONE (08:20)
[2016-08-05] MEDS ORDERED: DEXAMETHASONE 4 MG/1 ML VIAL ONE (08:20)
[2016-08-05] MEDS ORDERED: PHENYLEPHRINE 1 MG/10 ML SYRINGE IV ONE (08:20)
[2016-08-05] MEDS ORDERED: ONDANSETRON 4 MG/2 ML VIAL ONE (08:20)
[2016-08-05] MEDS ORDERED: NEOSTIGMINE 10 MG/10 ML VIAL ONE (08:20)
[2016-08-05] MEDS ORDERED: LIDOCAINE 1% 5 ML VIAL ONE (08:20)
[2016-08-05 12:00] LABS: Apearance,Urine CLEAR (Clear); Bacteria,Urine Occasional /HPF (Few); Bilirubin,Urine Negative (Negative); Blood, Urine Negative (Negative); Glucose,Urine (UA) Negative (Negative); Ketones,Urine Negative (Negative); Mucus,Urine Occasional /LPF (Occasional); Nitrite,Urine Negative (Negative); Protein,Urine Negative; Urine Color Straw (Yellow); Urine Specific Gravity 1.004 (1.001-1.035); Urine Urobilinogen < 2.0 EU/DL (0.2-1.0); WBC,Urine <1 /HPF (0-6)
[2016-08-05] MEDS ORDERED: ONDANSETRON 4 MG/2 ML VIAL IV PRN (12:10)
--- NOTE | 2016-08-05 12:19 | Operative Note ---
Date of procedure: 08/05/16 Pre-op diagnosis: Left upper lobe lung cancer Post-op diagnosis: same Procedure: Procedure: 1. Bronchoscopy 2. left video-assisted thoracoscopy 4. Injection of liposomal bupivacaine with intercostal nerve blocks levels 2, 3 , 4, 5, 6, 7, 8 5. left upper lobectomy 6. Complete mediastinal lymph node dissection Details of the procedure: The patient was brought into the lower placed supine on the OR table and general endotracheal anesthesia was induced without without any problems. Antibiotics were given. At this point I decided to proceed with left video- assisted thoracoscopy to do the left upper lobectomy and mediastinal lymph node dissection. The patient was turned right lateral decubitus left side up and the chest was prepared and draped in sterile fashion. An incision was made over the eighth rib and space was entered bluntly. Survey of the chest didn't show any obvious lesions other than the left upper lobe. The inferior pulmonary ligament was taken down and dissected the hilum all around the lung. The left superior pulmonary vein was identified and encircled with silk stitch. Was created and I used a white load stapler to resect the pulmonary vein. Care was taken to preserve the left lower lobe vein. After that we proceeded with identifying the apical anterior artery. Dissection was carried around the artery. Of note there was severely adhesed large and solid lymph nodes. After circling the artery successfully I dissected it using white load. I then identified left upper lobe bronchus and it was cleaned appropriately and it was transected using a stapler. I after that identified the interlobar artery and finished the fissure using purple load norma. This was carried all the way down The lobe was then handed over after complete resection and then turned my attention to completion of lymph node dissection. Identified level VII lymph node as well as level V, XI lymph nodes. There was collected and the would be sent for permanent pathology. The bronchial stump was tested under water and there was no leak identified. The patient tolerated the procedure well hemostasis was achieved and chest tube were inserted without any problems. The left lower lobe were inflated successfully without any problems. The patient was extubated and moved to PACU in good condition. Anesthesia: GETA Surgeon / Physician: Ju Yu Estimated blood loss: other (200) Specimens: other (Left upper lobe, level 11, 5, 7, 9 lymph nodes) Condition: stable Disposition: PACU Results - Labs CBC & BMP: 08/04/16 14:52 08/04/16 14:52 Discharge Plan - Discharge Medications No Action Atenolol [Tenormin] 50 mg PO DAILY tablet HYDROcodone/ACETAMIN 7.5-325 [[place] 7.5-325] 1 tablet PO Q6H PRN #15 tablet PRN Reason: Pain Moderate (4-7) Clopidogrel [Plavix] 75 mg PO DAILY Butalb/Acetaminophen/Caffeine [Fioricet 50-300-40 mg Capsule] 1 each PO Q4- 6H PRN PRN Reason: Pain Verapamil HCl [Verapamil ER Cap] 180 mg PO DAILY Amitriptyline HCl 50 mg PO BEDTIME - Follow Up or Referral - Forms/Instructions
[2016-08-05] MEDS ORDERED: HYDROmorphone 2 MG/1 ML VIAL ONE (12:24)
[2016-08-05] MEDS ORDERED: SEVOFLURANE 1 UNIT/15 MINUTE INH ONE (12:24)
[2016-08-05] MEDS ORDERED: fentaNYL 100 MCG/2 ML VIAL ONE ×2 (12:25)
[2016-08-05] MEDS ORDERED: SODIUM CHLORIDE 0.9% 2,000 ML IV ONE (12:25)
[2016-08-05] MEDS ORDERED: ACETAMINOPHEN 1,000 MG/100 ML VIAL IV ONE (12:25)
[2016-08-05] MEDS ORDERED: MIDAZOLAM 2 MG/2 ML VIAL ONE (12:25)
[2016-08-05] MEDS ORDERED: ePHEDrine 50 MG/ML AMP ONE (12:25)
[2016-08-05] MEDS ORDERED: LACTATED RINGERS 1,000 ML IV ONE (12:25)
--- NOTE | 2016-08-05 12:43 | XRay Report ---
XR chest 1V portable Indication: Postop thoracotomy. Comparison: Chest x-ray 07/30/2016. Technique: Portable AP chest was performed. Findings: Surgical changes from partial left pneumonectomy are present. Pulmonary nodule left upper lung is no longer visualized. Left-sided chest tube is present. Right-sided IJ central venous catheter is demonstrated. Minimal interval increase in stranding within the right lung base may in part reflect atelectasis. The heart size is stable. Bones and soft tissues demonstrate no significant abnormalities. Impression: 1. Postoperative changes from thoracotomy and partial pneumonectomy are demonstrated. 08/05/2016 12:39 PM PROCEDURE INTERPRETED AT [facility] DEPARTMENT OF RADIOLOGY Final Report Signed by: Dr. Stephon Scott
[2016-08-05 12:44] LABS: Basophils # 0.1 10*3/uL (0.0-0.2); Basophils % 0.4 % (0.0-0.8); Eosinophils % 0.1 % (0.00-10.9); Hematocrit 33.8 VOL% (35.7-47.0); Hemoglobin 11.2 GM/DL (12.0-16.0); Immature Granulocytes % 0.7 %; Immature Granulocytes Absolute 0.12 #; Lymphocytes # 1.2 10*3/uL (1.4-4.0); Lymphocytes % 7.4 % (21.3-54.2); Mean Corpuscular HGB Conc 33.1 GM/DL (32-36); Mean Corpuscular Hemoglobin 35 PG (27-34); Mean Corpuscular Volume 105.6 FL (87-102); Mean Platelet Volume 11.1 FL (9.6-12.0); Monocytes # 0.6 10*3/uL (0.11-0.8); Monocytes % 3.4 % (1.7-12.7); Neutrophils # 14.4 10*3/uL (1.4-7.4); Platelet Count 193 T/CUMM (130-400); White Blood Count 16.3 T/CUMM (4-12)
[2016-08-05 13:17] LABS: Calcium 7.8 MG/DL (8.5-10.1); Osmolality,Calculated 286.1 MOS/KG (273-304); Potassium 4.4 MMOL/L (3.5-5.1)
--- NOTE | 2016-08-05 13:54 | Anesthesia Post-Op ---
Anesthesia Post OP - Post Ansesthetic Evaluation Patient seen in post op: Yes Resp: within normal limits CV: within normal limits Mental: within normal limits Temp: within normal limits [id number]: within normal limits Nausea and Vomiting: within normal limits Pain: within normal limits
[2016-08-05] MEDS: POTASSIUM CHLORIDE INJ 10 MEQ in SODIUM CHLORIDE 0.45% 1,000 ML IV SCH (13:55)
[2016-08-05] MEDS ORDERED: METOPROLOL TARTRATE 5 MG/5 ML VIAL IV ONE (14:12)
--- NOTE | 2016-08-05 14:12 | Event Note ---
Dr. Yu call me after surgery to inform them that she had done well with surgery. I made a courtesy visit in her room in the ICU. She is waking up. X- ray looks good. Minimal if any air leak. Thus far looks like she is done well. Please call if needed from a medical standpoint.
[2016-08-05] MEDS: KETOROLAC 15 MG/1 ML VIAL IV SCH ×2 (14:16→18:34)
[2016-08-05] MEDS: ACETAMINOPHEN INJ 1,000 MG in PREMIX 1 EACH IV SCH (17:03)
[2016-08-05] MEDS ORDERED: LABETALOL 20 MG/4 ML SYRINGE IV ONE (17:20)
[2016-08-05] MEDS: GABAPENTIN 100 MG CAPSULE PO SCH ×2 (17:30→20:25)
[2016-08-05] MEDS ORDERED: LABETALOL 20 MG/4 ML SYRINGE IV PRN (18:12)
[2016-08-05] MEDS ORDERED: NALOXONE 0.4 MG/ML VIAL IV PRN (20:15)
[2016-08-05] MEDS ORDERED: KETOROLAC 15 MG/1 ML VIAL IV ONE (20:15)
[2016-08-05] MEDS ORDERED: HYDROmorphone PCA 30 MG/30 ML SYRINGE IV SCH (20:30)
[2016-08-05] MEDS ORDERED: CEFUROXIME INJ 1,500 MG in SODIUM CHLORIDE 0.9% 100 ML IV SCH (20:30)
[2016-08-05] MEDS ORDERED: AMITRIPTYLINE 50 MG TABLET PO SCH (22:00)
[2016-08-06] MEDS: POTASSIUM CHLORIDE INJ 10 MEQ in SODIUM CHLORIDE 0.45% 1,000 ML IV SCH (00:02)
[2016-08-06] MEDS: ACETAMINOPHEN INJ 1,000 MG in PREMIX 1 EACH IV SCH (00:02)
[2016-08-06] MEDS: KETOROLAC 15 MG/1 ML VIAL IV SCH ×4 (00:03→18:13)
[2016-08-06] MEDS: ACETAMINOPHEN 500 MG TABLET PO SCH ×4 (05:52→23:59)
[2016-08-06] MEDS: ENOXAPARIN 40 MG/0.4 ML SYRINGE SUBCUT SCH (05:53)
[2016-08-06 06:20] LABS: Basophils % 0.1 % (0.0-0.8); Eosinophils % 0.1 % (0.00-10.9); Hematocrit 31.3 VOL% (35.7-47.0); Hemoglobin 10.6 GM/DL (12.0-16.0); Immature Granulocytes % 0.6 %; Immature Granulocytes Absolute 0.09 #; Lymphocytes # 1.3 10*3/uL (1.4-4.0); Lymphocytes % 8.1 % (21.3-54.2); Mean Corpuscular HGB Conc 33.9 GM/DL (32-36); Mean Corpuscular Hemoglobin 35 PG (27-34); Mean Corpuscular Volume 103.3 FL (87-102); Mean Platelet Volume 11.1 FL (9.6-12.0); Monocytes # 1.6 10*3/uL (0.11-0.8); Monocytes % 9.8 % (1.7-12.7); Neutrophils # 12.9 10*3/uL (1.4-7.4); Neutrophils % 81.3 % (38.7-73.9); Platelet Count 176 T/CUMM (130-400); Red Blood Count 3.03 MC/CUMM (3.8-5.5); Red Cell Distribution Width 12.9 % (9.3-17.3); White Blood Count 15.9 T/CUMM (4-12)
--- NOTE | 2016-08-06 06:41 | XRay Report ---
XR chest 1V portable Indication: Status post video-assisted thorascopic surgery. Chest tube placement. Comparison: Chest x-ray 08/05/2016. Technique: Portable AP chest was performed. Findings: Upper left chest is obscured. No displacement the lateral pleural stripe is present. Left-sided chest tube is stable. Suture line within the left lung is stable. Minimal increase in linear stranding in the right lung base suggest minimal worsening of atelectasis. Lungs otherwise are clear. Bones and soft tissues demonstrate no significant abnormalities. Heart size is stable. Impression: 1. Minimal bibasilar atelectatic changes are present perhaps slightly more prevalent on the right. 2. No displacement of the lateral pleural stripe is noted on the left. The lung apex is obscured. 08/06/2016 6:37 AM PROCEDURE INTERPRETED AT [facility] DEPARTMENT OF RADIOLOGY Final Report Signed by: Dr. Stephon Scott
[2016-08-06 06:48] LABS: Calcium 8.1 MG/DL (8.5-10.1); Osmolality,Calculated 275.5 MOS/KG (273-304); Potassium 4.3 MMOL/L (3.5-5.1)
--- NOTE | 2016-08-06 09:33 | Cardiothoracic Progress Note ---
Assessment and Plan - Time spent with patient Time spent with patient: Greater than 30 minutes (1) Adenocarcinoma, lung Status: Acute Assessment and plan: Postoperative day 1 status post left video-assisted thoracoscopy with left upper lobectomy and mediastinal lymph node dissection. Patient has been doing very well. 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 Chest tube output is 500 cc serous fluid. Minimal air leak. I will proceed with putting the chest tube to waterseal. Advance diet as tolerated. Start home meds. Out of bed to chair. Transfer to telemetry later in the day. Current Visit: No Exam (Progress Note) - Constitutional Vitals: Period Temp Pulse Resp BP Sys/Noble Pulse Ox Last 24 Hr 97 F-97.8 F 56-80 12-28 95-176/47-82 96-100 Result/EKG - Labs CBC & BMP: 08/06/16 06:00 08/06/16 06:00 Labs: Laboratory Results - last 24 hr 08/04/16 08/05/16 08/05/16 14:52 08:50 12:25 WBC 16.3 H D RBC 3.20 L Hgb 11.2 L Hct 33.8 L MCV 105.6 H MCH 35 H MCHC 33.1 RDW 13.0 Plt Count 193 MPV 11.1 Neut % (Auto) 88.0 H Lymph % (Auto) 7.4 L Yell % (Auto) 3.4 Eos % (Auto) 0.1 Baso % (Auto) 0.4 Neut # (Auto) 14.4 H Lymph # (Auto) 1.2 L Yell # (Auto) 0.6 Eos # (Auto) 0.0 Baso # (Auto) 0.1 Immature Gran % 0.7 Nucleated RBC % 0.0 Immature Gran # 0.12 Nucleated RBCs # 0.00 Sodium Potassium Chloride Carbon Dioxide Anion Gap BUN Creatinine GFR Calculation BUN/Creatinine Ratio Glucose Calculated Osmolality Calcium Urine Color Straw Urine Appearance Clear Urine pH 7.0 Ur Specific Douglas 1.004 Urine Protein Negative Urine Glucose (UA) Negative Urine Ketones Negative Urine Blood Negative Urine Nitrate Negative Urine Bilirubin Negative Urine Urobilinogen < 2.0 H Urine Leukocytes Negative Urine WBC <1 Urine Bacteria Occasional Urine Mucus Occasional Ur Culture Indicated? Not indicated Crossmatch See Detail 08/05/16 08/06/16 08/06/16 12:25 06:00 06:00 WBC 15.9 H RBC 3.03 L Hgb 10.6 L Hct 31.3 L MCV 103.3 H MCH 35 H MCHC 33.9 RDW 12.9 Plt Count 176 MPV 11.1 Neut % (Auto) 81.3 H Lymph % (Auto) 8.1 L Yell % (Auto) 9.8 Eos % (Auto) 0.1 Baso % (Auto) 0.1 Neut # (Auto) 12.9 H Lymph # (Auto) 1.3 L Yell # (Auto) 1.6 H Eos # (Auto) 0.0 Baso # (Auto) 0.0 Immature Gran % 0.6 Nucleated RBC % 0.0 Immature Gran # 0.09 Nucleated RBCs # 0.00 Sodium 142 139 Potassium 4.4 4.3 Chloride 109 H 105 Carbon Dioxide 26 25 Anion Gap 11.4 13.3 BUN 9 8 Creatinine 0.60 0.50 L GFR Calculation 100 95 BUN/Creatinine Ratio 15.00 16.00 Glucose 190 H 120 H Calculated Osmolality 286.1 275.5 Calcium 7.8 L 8.1 L Urine Color Urine Appearance Urine pH Ur Specific Douglas Urine Protein Urine Glucose (UA) Urine Ketones Urine Blood Urine Nitrate Urine Bilirubin Urine Urobilinogen Urine Leukocytes Urine WBC Urine Bacteria Urine Mucus Ur Culture Indicated? Crossmatch
[2016-08-06] MEDS: LACTATED RINGERS 1,000 ML IV SCH (12:28)
[2016-08-06] MEDS: GABAPENTIN 100 MG CAPSULE PO SCH ×3 (12:29→21:04)
[2016-08-06] MEDS: PANTOPRAZOLE 40 MG TABLET PO SCH (12:29)
[2016-08-06] MEDS ORDERED: BUTALBITAL/ACETAMIN/CAFFEINE 50-325-40 MG TABLET PO PRN (14:42)
[2016-08-06] MEDS: ATENOLOL 50 MG TABLET PO SCH (15:07)
[2016-08-06] MEDS: VERAPAMIL SR 180 MG TABLET PO SCH (15:07)
--- NOTE | 2016-08-06 18:17 | Pathology Report from [facility] ---
[facility] ACCESSION # : [id number] PATIENT NAME : Julia Gill ORDERING DR : Ju Yu MD CLINICAL HX: Stage I LT upper lobe lung CA POST-OP DX: Same SPECIMEN INFO: #1 LT upper lobe #2 #11 #3 Lymph node #5 #4 9L #5 1L GROSS DESCRIPTION: Received in formalin in five parts labeled:#1 JULIA COVERT & #1 is a left upper lung lobe measuring 20.5 x 8.5 x 2.3 cm. The pleural surface is smooth and pink red. Sectioning the specimen reveals a pink whitley tumor mass measuring 1.5 cm which grossly comes to within 1.6 cm of the pleural surface and 4.5 cm of the bronchial margin. The remaining cut surfaces are spongy and hemorrhagic with no other masses appreciated. A single anthracotic lymph node is seen measuring 1.0 x 0.8 cm. Sections submitted 1A-Bronchial and vascular margins, 1B-Lymph node, 1C-1E-Mass.#2 JULIA COVERT & #2 are two fragments of red black tissue measuring 1.3 x 0.7 cm collectively submitted in cassette #2.#3 JULIA COVERT & #3 is a 1.8 x 1.0 cm fragment of red black tissue sectioned and submitted in cassette #3.#4 JULIA COVERT & #4 is a 1.0 x 0.7 cm black whitley tissue fragment sectioned and submitted in cassette #4.#5 JULIA COVERT & #5 is a 1.3 x 0.6 cm red black tissue fragment submitted in cassette #5. DIAGNOSIS FOR JULIA GILL: LUNG, LEFT UPPER LOBE, LOBECTOMY (Intact, 20.5 x 8.5 x 2.3 cm): TUMOR TYPE: Adenocarcinoma, (TTF1+, CK7+, CK20-, p40-) HISTOLOGIC GRADE: Well differentiated TUMOR SIZE: 1.5 x 1.5 cm. TUMOR SITE: Left upper lobe MARGINS: All margins uninvolved with carcinoma with nearest pleural margin = 16 mm. FOCALITY: Unifocal VISCERAL PLEURAL INVASION: Not Present EXTRAPULMONARY EXTENSION: Not Present LYMPHOVASCULAR INVASION: Not present TUMOR ASSOCIATED PNEUMONITIS OR ATELECTASIS: Not present. LYMPH NODES : Number examined = 5; Number positive = 0.(pancytokeratin negative) EXTRANODAL EXTENSION: Not present. AJCC PATHOLOGIC STAGE: IA (T1aN0) COLLECTED DATE: 08/05/2016 [facility] REPORT DATE: 08/06/2016 ELECTRONICALLY SIGNED BY: Luis Gilbert III, M.D. 08/06/2016 - 13:51:50 MTDD
[2016-08-06] MEDS: AMITRIPTYLINE 50 MG TABLET PO SCH (21:04)
[2016-08-07] MEDS: KETOROLAC 15 MG/1 ML VIAL IV SCH ×2 (00:02→06:19)
[2016-08-07] MEDS: ENOXAPARIN 40 MG/0.4 ML SYRINGE SUBCUT SCH (06:19)
[2016-08-07] MEDS: ACETAMINOPHEN 500 MG TABLET PO SCH ×3 (06:19→18:21)
[2016-08-07 06:32] LABS: Basophils # 0.1 10*3/uL (0.0-0.2); Basophils % 0.6 % (0.0-0.8); Eosinophils # 0.3 10*3/uL (0.0-0.87); Eosinophils % 2.5 % (0.00-10.9); Hematocrit 30.2 VOL% (35.7-47.0); Hemoglobin 10.1 GM/DL (12.0-16.0); Immature Granulocytes % 0.4 %; Immature Granulocytes Absolute 0.05 #; Lymphocytes # 2.2 10*3/uL (1.4-4.0); Lymphocytes % 19.9 % (21.3-54.2); Mean Corpuscular HGB Conc 33.4 GM/DL (32-36); Mean Corpuscular Hemoglobin 35 PG (27-34); Mean Corpuscular Volume 103.8 FL (87-102); Mean Platelet Volume 11.5 FL (9.6-12.0); Monocytes # 1.4 10*3/uL (0.11-0.8); Neutrophils # 7.2 10*3/uL (1.4-7.4); Neutrophils % 64.6 % (38.7-73.9); Platelet Count 150 T/CUMM (130-400); Red Blood Count 2.91 MC/CUMM (3.8-5.5); Red Cell Distribution Width 13.1 % (9.3-17.3); White Blood Count 11.2 T/CUMM (4-12)
[2016-08-07 07:09] LABS: Calcium 8.1 MG/DL (8.5-10.1); Osmolality,Calculated 283.1 MOS/KG (273-304); Potassium 4.1 MMOL/L (3.5-5.1)
--- NOTE | 2016-08-07 09:32 | Cardiothoracic Progress Note ---
Assessment and Plan (1) Adenocarcinoma, lung Status: Acute Assessment and plan: Postoperative day 2 status post left video-assisted thoracoscopy with left upper lobectomy and mediastinal lymph node dissection. Patient has been doing very well. Chest tube output is 500 cc serous fluid. No air leak. We will continue to keep the chest tube to waterseal. Ambulate. Pain control. 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 Current Visit: No Exam (Progress Note) - Constitutional Vitals: Period Temp Pulse Resp BP Sys/Noble Pulse Ox Last 24 Hr 96.6 F-98.7 F 54-84 18-24 105-131/57-74 92-95 Result/EKG - Labs CBC & BMP: 08/07/16 05:56 08/07/16 05:56 Labs: Laboratory Results - last 24 hr 08/07/16 08/07/16 05:56 05:56 WBC 11.2 RBC 2.91 L Hgb 10.1 L Hct 30.2 L MCV 103.8 H MCH 35 H MCHC 33.4 RDW 13.1 Plt Count 150 MPV 11.5 Neut % (Auto) 64.6 Lymph % (Auto) 19.9 L [place] % (Auto) 12.0 Eos % (Auto) 2.5 Baso % (Auto) 0.6 Neut # (Auto) 7.2 Lymph # (Auto) 2.2 [place] # (Auto) 1.4 H Eos # (Auto) 0.3 Baso # (Auto) 0.1 Immature Gran % 0.4 Nucleated RBC % 0.0 Immature Gran # 0.05 Nucleated RBCs # 0.00 Sodium 142 Potassium 4.1 Chloride 108 H Carbon Dioxide 26 Anion Gap 12.1 BUN 13 Creatinine 0.60 GFR Calculation 101 BUN/Creatinine Ratio 21.00 H Glucose 108 H Calculated Osmolality 283.1 Calcium 8.1 L
[2016-08-07] MEDS: PANTOPRAZOLE 40 MG TABLET PO SCH (09:38)
[2016-08-07] MEDS: VERAPAMIL SR 180 MG TABLET PO SCH (09:38)
[2016-08-07] MEDS: GABAPENTIN 100 MG CAPSULE PO SCH ×3 (09:38→20:36)
[2016-08-07] MEDS: traMADol 50 MG TABLET PO PRN ×2 (09:38→17:35)
[2016-08-07] MEDS: ATENOLOL 50 MG TABLET PO SCH (09:38)
--- NOTE | 2016-08-07 12:50 | XRay Report ---
Exam: XR chest 2V Indication: Left upper lobectomy. Comparison study: Prior chest radiograph August 06, 2016 Findings: The heart, mediastinum and bony structures are stable from prior. Left chest tube is in similar position. Minimal patchy perihilar interstitial opacities are noted bilaterally which appear slightly decreased from prior. There are also patchy opacities within the lung bases and minimal blunting of costophrenic angles, not specifically changed. Mild leftward shift of mediastinal structures is noted, similar to prior. There is no significant pneumothorax identified. Right-sided IJ central venous catheter is noted in similar position. Osseous structures appear stable from prior. Impression: Improved aeration within the perihilar regions and lung bases with minimal residual probable atelectasis noted. Trace left pleural effusion is also suspected. Stable position of the left-sided chest tube. No significant pneumothorax is evident on the current study. Stable position of right-sided central line. PROCEDURE INTERPRETED AT [facility] DEPARTMENT OF RADIOLOGY Final Report Signed by: Olvin Garg
[2016-08-07] MEDS: CLOPIDOGREL 75 MG TABLET PO SCH (16:17)
[2016-08-07] MEDS: AMITRIPTYLINE 50 MG TABLET PO SCH (20:36)
[2016-08-08] MEDS: ACETAMINOPHEN 500 MG TABLET PO SCH ×3 (00:23→13:30)
[2016-08-08 04:43] LABS: Basophils # 0.1 10*3/uL (0.0-0.2); Basophils % 0.6 % (0.0-0.8); Eosinophils # 0.4 10*3/uL (0.0-0.87); Eosinophils % 4.6 % (0.00-10.9); Hematocrit 30.5 VOL% (35.7-47.0); Hemoglobin 10.1 GM/DL (12.0-16.0); Immature Granulocytes % 0.5 %; Immature Granulocytes Absolute 0.05 #; Lymphocytes # 2.2 10*3/uL (1.4-4.0); Lymphocytes % 22.9 % (21.3-54.2); Mean Corpuscular HGB Conc 33.1 GM/DL (32-36); Mean Corpuscular Hemoglobin 34 PG (27-34); Mean Corpuscular Volume 102.7 FL (87-102); Mean Platelet Volume 11.6 FL (9.6-12.0); Monocytes # 1.1 10*3/uL (0.11-0.8); Monocytes % 11.1 % (1.7-12.7); Neutrophils # 5.8 10*3/uL (1.4-7.4); Neutrophils % 60.3 % (38.7-73.9); Platelet Count 156 T/CUMM (130-400); Red Blood Count 2.97 MC/CUMM (3.8-5.5); Red Cell Distribution Width 13.1 % (9.3-17.3); White Blood Count 9.6 T/CUMM (4-12)
[2016-08-08 05:15] LABS: Calcium 8.1 MG/DL (8.5-10.1); Osmolality,Calculated 280.3 MOS/KG (273-304); Potassium 4.1 MMOL/L (3.5-5.1)
[2016-08-08] MEDS: ENOXAPARIN 40 MG/0.4 ML SYRINGE SUBCUT SCH (06:12)
[2016-08-08] MEDS: GABAPENTIN 100 MG CAPSULE PO SCH ×2 (08:58→16:42)
[2016-08-08] MEDS: ATENOLOL 50 MG TABLET PO SCH (08:59)
[2016-08-08] MEDS: traMADol 50 MG TABLET PO PRN (08:59)
[2016-08-08] MEDS: VERAPAMIL SR 180 MG TABLET PO SCH (08:59)
[2016-08-08] MEDS: PANTOPRAZOLE 40 MG TABLET PO SCH (08:59)
[2016-08-08] MEDS: CLOPIDOGREL 75 MG TABLET PO SCH (08:59)
[2016-08-08] MEDS ORDERED: CELECOXIB 200 MG CAPSULE PO SCH (09:00)
--- NOTE | 2016-08-08 11:14 | XRay Report ---
Exam: XR chest 2V Indication: Left chest tube Comparison study: 08/07/2016 Findings: Left-sided chest tube is in essentially unchanged position. No significant pneumothorax is evident on the left. There is mild leftward shift of mediastinal structures with postoperative changes compatible left upper lobe resection, as expected. Right lung is probably clear. Right-sided central venous catheter is in stable position. Minimal layering fluid is suggested possible within the resection cavity in the left upper chest. There is no acute osseous abnormality. Impression: Postsurgical changes. Stable position of support tubes and lines. PROCEDURE INTERPRETED AT [facility] DEPARTMENT OF RADIOLOGY Final Report Signed by: Olvin Garg
[2016-08-08 12:52] VITALS: BP 106/63
--- NOTE | 2016-08-08 13:35 | Discharge Summary ---
Hospital Course - Hospital Course Hospital Course: The patient came into the preop area was evaluated and was not to be fit for surgery. The patient was then taken to the OR and a VATS left upper lobectomy with mediastinal lymph node dissection was performed without any problems. The patient was admitted to the ICU for observation overnight. She did very well without any problems. She was transferred to telemetry the following day. She was ambulating well. She was tolerating her diet. Chest tube output was noted to be 500 cc in the postoperative day 1. I kept it to waterseal. There was no air leak. Postoperative day to continue to be 500 cc. Chest x-ray continue to look good with full expansion of the left lower lobe. Postoperative day #3 the output dropped to 300 cc serous fluid and the chest x-ray looks good after clamping trial and there was no air leak. I removed the chest tube without any problems. The patient was ready for discharge. - Time spent with patient Time with patient DS: Greater than 30 minutes Diagnosis - Discharge Diagnosis (1) Adenocarcinoma, lung Status: Acute Specialty Discharge - Follow Up or Referrals Follow up with: Ju Yu [Physician] - Discharge Plan - Discharge Data Disposition: Disch To Home/Self Care Condition at Discharge: Stable Discharge Diet: advance to your usual diet Activity: resume usual activities as tolerated Hygiene: no restrictions, may shower Weight Bearing at Discharge: full weight bearing Driving: no restrictions Contact your physician if you experience:: fever over 101, Redness or swelling, Nausea/Vomiting, Shortness of breath, Bleeding - Discharge Medications New Acetaminophen Tab [Tylenol Tab] 1,000 mg PO Q6H tablet Clopidogrel [Plavix] 75 mg PO DAILY tablet Celecoxib [Celebrex] 200 mg PO BID #60 capsule traMADol TAB [Ultram] 50 mg PO Q6H PRN #60 tablet PRN Reason: Pain Mild (1-3) Continue Atenolol [Tenormin] 50 mg PO DAILY tablet HYDROcodone/ACETAMIN 7.5-325 [[place] 7.5-325] 1 tablet PO Q6H PRN #15 tablet PRN Reason: Pain Moderate (4-7) Clopidogrel [Plavix] 75 mg PO DAILY Butalb/Acetaminophen/Caffeine [Fioricet 50-300-40 mg Capsule] 1 each PO Q4- 6H PRN PRN Reason: Pain Verapamil HCl [Verapamil ER Cap] 180 mg PO DAILY Amitriptyline HCl 50 mg PO BEDTIME - Follow Up or Referral - Forms/Instructions Exam - Constitutional Vitals: Period Temp Pulse Resp BP Sys/Noble Pulse Ox Last 24 Hr 96.6 F-98.0 F 58-68 17-18 106-146/63-80 93-98 Discharge Results Procedures and tests throughout hospitalization: Pending Orders 08/04/16 14:52 Fresh Frozen Plasma Routine Red Blood Cells Leuko Red Routine Single Donor Platelets Routine Type and Screen Routine 08/08/16 13:00 XR chest 2V Routine Labs on day of discharge: Labs from last 24 hours 08/08/16 08/08/16 03:58 03:58 WBC 9.6 RBC 2.97 L Hgb 10.1 L Hct 30.5 L MCV 102.7 H MCH 34 MCHC 33.1 RDW 13.1 Plt Count 156 MPV 11.6 Neut % (Auto) 60.3 Lymph % (Auto) 22.9 [place] % (Auto) 11.1 Eos % (Auto) 4.6 Baso % (Auto) 0.6 Neut # (Auto) 5.8 Lymph # (Auto) 2.2 [place] # (Auto) 1.1 H Eos # (Auto) 0.4 Baso # (Auto) 0.1 Immature Gran % 0.5 Nucleated RBC % 0.0 Immature Gran # 0.05 Nucleated RBCs # 0.00 Sodium 141 Potassium 4.1 Chloride 106 Carbon Dioxide 28 Anion Gap 11.1 BUN 10 Creatinine 0.60 GFR Calculation 101 BUN/Creatinine Ratio 16.00 Glucose 119 H Calculated Osmolality 280.3 Calcium 8.1 L DS: Provider Date of admission: 08/05/16 12:10 Attending physician on admission: Ju Yu Consults: 08/05/16 15:07 Consult to Pastoral Services [CONS] Routine Comment: Pastoral Screen: Request Distillery Supervisor Visit Pastoral Screen Source of Request: Family Discharging clinician: Ju Yu Expected date of discharge: 08/08/16
--- NOTE | 2016-08-08 14:44 | XRay Report ---
Exam: XR chest 2V Indication: Chest tube, central line removed Comparison study: Prior chest radiograph 08/08/2016 at 6:54 AM Findings: Left-sided chest tube is in similar position. Again, there is layering fluid within the left upper chest which may represent fluid in the resection cavity and/or in the extrapleural space. A small apical pneumothorax is noted measuring approximately 0.7 cm (10%), which appears new from prior. Right lung appears grossly clear, unchanged. The right-sided central venous catheter has been removed. Cardiac silhouette and mediastinal contours otherwise appear stable from prior. Impression: Left-sided chest tube in similar position with suggestion of a new small left apical pneumothorax when compared to prior. Slight worsening of minimal fluid layering within the left suprahilar region may represent fluid developing in the resection cavity, but is otherwise nonspecific. Continued close clinical imaging follow-up is recommended. PROCEDURE INTERPRETED AT [facility] DEPARTMENT OF RADIOLOGY Final Report Signed by: Olvin Garg
--- NOTE | 2016-08-10 13:18 | Pathology Report from [facility] ---
[facility] ACCESSION # : [id number] PATIENT NAME : Erma Buckner ORDERING DR : Ju Yu MD CLINICAL HX: Stage I LT upper lobe lung CA POST-OP DX: Same SPECIMEN INFO: #1 LT upper lobe #2 #11 #3 Lymph node #5 #4 9L #5 1L (Is actually 7L per req & Dr. Peters, BLW 08/09/16) GROSS DESCRIPTION: Received in formalin in five parts labeled:#1 ERMA GRAMAJOT & #1 is a left upper lung lobe measuring 20.5 x 8.5 x 2.3 cm. The pleural surface is smooth and pink red. Sectioning the specimen reveals a pink whitley tumor mass measuring 1.5 cm which grossly comes to within 1.6 cm of the pleural surface and 4.5 cm of the bronchial margin. The remaining cut surfaces are spongy and hemorrhagic with no other masses appreciated. A single anthracotic lymph node is seen measuring 1.0 x 0.8 cm. Sections 1A-Bronchial and vascular margins, 1B-Lymph node, 1C-1E-Mass.#2 ERMA COVERT & #2 are two fragments of red black tissue measuring 1.3 x 0.7 cm collectively submitted in cassette #2.# 3 ERMA COVERT & #3 is a 1.8 x 1.0 cm fragment of red black tissue sectioned and submitted in cassette #3.#4 ERMA COVERT & #4 is a 1.0 x 0.7 cm black whitley tissue fragment sectioned and submitted in cassette #4.#5 ERMA COVERT & #5 is a 1.3 x 0.6 cm red black tissue fragment submitted in cassette #5. DIAGNOSIS FOR ERMA BUCKNER: LUNG, LEFT UPPER LOBE, LOBECTOMY (Intact, 20.5 x 8.5 x 2.3 cm): TUMOR TYPE: Adenocarcinoma, (TTF1+, CK7+, CK20-, p40-) HISTOLOGIC GRADE: Well differentiated TUMOR SIZE: 1.5 x 1.5 cm. TUMOR SITE: Left upper lobe MARGINS: All margins uninvolved with carcinoma with nearest pleural margin = 16 mm. FOCALITY: Unifocal VISCERAL PLEURAL INVASION: Not Present EXTRAPULMONARY EXTENSION: Not Present LYMPHOVASCULAR INVASION: Not present TUMOR ASSOCIATED PNEUMONITIS OR ATELECTASIS: Not present. LYMPH NODES (*Corrected*): Number examined = 8; Number positive = 0 ( pancytokeratin negative). Nodes examined (by specimen #): #1 12L, 13L(x2), #2 11L(x2), #3 5L, #4 9L, & #5 7L. EXTRANODAL EXTENSION: Not present. AJCC PATHOLOGIC STAGE: IA (T1aN0)NOTE: Total nodes corrected per Dr. Ang Peters, specimen #2 had 2 nodes. Two additional 13L nodes were found upon re-examination of lobectomy specimen (Case discussed with Dr. Yu, SIN, 08/10/2016, 1100) COLLECTED DATE: 08/05/2016 [facility] REPORT DATE: 08/06/2016 ELECTRONICALLY SIGNED BY: Luis Gilbert III, M.D. 08/06/2016 - 13:51:50 [facility]
== END 2016-08-08 16:44 | disposition home or self-care (01) | DRG 165 ==
LOC: N.OR 06:57 → N.SDSINP 06:58 → N.ICU 09:17 → N.TELES 08-06 14:06
PROVIDERS: ADMIT Thoracic Surgery (Cardiothoracic Vascular Surgery); ATTEND Thoracic Surgery (Cardiothoracic Vascular Surgery)

== ENCOUNTER 2017-10-24 05:43 | Inpatient (IN) ==
[2017-10-24] MEDS ORDERED: FAMOTIDINE 20 MG TABLET PO ONE (06:00)
[2017-10-24] MEDS ORDERED: DIAZEPAM 5 MG TABLET PO ONE (06:00)
[2017-10-24] MEDS ORDERED: CLINDAMYCIN INJ 50 ML IV ONE (06:20)
[2017-10-24] MEDS ORDERED: VANCOMYCIN 1,000 MG VIAL ONE (06:20)
[2017-10-24] MEDS ORDERED: ROPIVACAINE 0.5% 30 ML VIAL ONE (06:27)
[2017-10-24] MEDS ORDERED: BUPIVACAINE SPINAL 0.75% 2 ML AMP SPINAL ONE (06:27)
[2017-10-24] MEDS ORDERED: ceFAZolin 2,000 MG in PREMIX 1 EACH IV ONE (06:30)
[2017-10-24] MEDS ORDERED: VANCOMYCIN INJ 1,000 MG in SODIUM CHLORIDE 0.9% 250 ML IV ONE (06:30)
[2017-10-24] MEDS ORDERED: FAMOTIDINE 20 MG TABLET ONE (06:45)
[2017-10-24] MEDS ORDERED: DIAZEPAM 5 MG TABLET ONE (06:45)
[2017-10-24] MEDS ORDERED: LACTATED RINGERS 1,000 ML IV SCH (07:00)
[2017-10-24] MEDS ORDERED: TRANEXAMIC ACID 1,000 MG/10 ML VIAL ONE ×2 (07:34→09:01)
[2017-10-24] MEDS ORDERED: BACITRACIN OINT 0.9 GM PACK TOP ONE (07:34)
[2017-10-24] MEDS ORDERED: BISMUTH SUBSALICYLATE 30 ML/524 MG 240 ML/BOTTLE PO PRN (08:43)
[2017-10-24] MEDS ORDERED: MAGNESIUM HYDROXIDE SUSP 30 ML UDCUP PO PRN (08:44)
[2017-10-24] MEDS ORDERED: diphenhydrAMINE CAP 25 MG CAPSULE PO PRN (08:44)
[2017-10-24] MEDS ORDERED: ONDANSETRON 4 MG/2 ML VIAL IV PRN (08:44)
[2017-10-24] MEDS ORDERED: oxyCODONE IR 5 MG TABLET PO PRN ×2 (08:44)
[2017-10-24] MEDS ORDERED: MORPHINE 4 MG/1 ML VIAL IV PRN ×2 (08:44)
[2017-10-24] MEDS ORDERED: ACETAMINOPHEN 1,000 MG/100 ML VIAL IV ONE (09:01)
[2017-10-24] MEDS ORDERED: MIDAZOLAM 2 MG/2 ML VIAL ONE (09:01)
[2017-10-24] MEDS ORDERED: ONDANSETRON 4 MG/2 ML VIAL ONE (09:01)
[2017-10-24] MEDS ORDERED: GLYCOPYRROLATE 0.4 MG/2 ML VIAL ONE (09:01)
[2017-10-24] MEDS ORDERED: fentaNYL 100 MCG/2 ML VIAL ONE (09:01)
[2017-10-24] MEDS ORDERED: PROPOFOL 500 MG/50 ML BOTTLE IV ONE (09:01)
[2017-10-24] MEDS ORDERED: SODIUM CHLORIDE 0.9% 200 ML IV ONE (09:02)
[2017-10-24] MEDS: LACTATED RINGERS 1,000 ML IV SCH ×2 (10:05→19:34)
[2017-10-24 11:19] LABS: Basophils # 0.1 10*3/uL (0.0-0.2); Basophils % 0.7 % (0.0-0.8); Eosinophils # 0.1 10*3/uL (0.0-0.87); Eosinophils % 0.7 % (0.00-10.9); Hematocrit 35.4 VOL% (35.7-47.0); Hemoglobin 11.7 GM/DL (12.0-16.0); Immature Granulocytes % 0.6 %; Immature Granulocytes Absolute 0.06 #; Lymphocytes # 2.1 10*3/uL (1.4-4.0); Lymphocytes % 22.5 % (21.3-54.2); Mean Corpuscular HGB Conc 33.1 GM/DL (32-36); Mean Corpuscular Hemoglobin 35 PG (27-34); Mean Corpuscular Volume 104.7 FL (87-102); Monocytes # 0.8 10*3/uL (0.11-0.8); Monocytes % 8.6 % (1.7-12.7); Neutrophils # 6.3 10*3/uL (1.4-7.4); Neutrophils % 66.9 % (38.7-73.9); Platelet Count 172 T/CUMM (130-400); Red Blood Count 3.38 MC/CUMM (3.8-5.5); Red Cell Distribution Width 13.1 % (9.3-17.3); White Blood Count 9.4 T/CUMM (4-12)
[2017-10-24 11:53] LABS: Calcium 8.6 MG/DL (8.5-10.1); Osmolality,Calculated 275.7 MOS/KG (273-304); Potassium 4.2 MMOL/L (3.5-5.1)
[2017-10-24] MEDS: CHOLECALCIFEROL 1,000 UNIT TABLET PO SCH (12:17)
[2017-10-24] MEDS: KETOROLAC 30 MG/1 ML VIAL IV SCH ×3 (12:18→22:50)
[2017-10-24] MEDS: CLINDAMYCIN INJ 900 MG in PREMIX 1 EACH IV SCH ×2 (12:19→20:12)
[2017-10-24] MEDS: VERAPAMIL SR 180 MG TABLET PO SCH (12:19)
[2017-10-24] MEDS: ACETAMINOPHEN 500 MG TABLET PO SCH ×2 (12:20→17:45)
[2017-10-24] MEDS: ATENOLOL 50 MG TABLET PO SCH (12:20)
[2017-10-24] MEDS: POLYCARBOPHIL 625 MG TABLET PO SCH (12:21)
[2017-10-24] MEDS: DOCUSATE SODIUM 100 MG CAPSULE PO SCH ×2 (12:21→20:11)
[2017-10-24] MEDS ORDERED: AMITRIPTYLINE 50 MG TABLET PO SCH ×2 (20:00→21:00)
[2017-10-25] MEDS: LACTATED RINGERS 1,000 ML IV SCH (01:23)
[2017-10-25] MEDS: ACETAMINOPHEN 500 MG TABLET PO SCH ×2 (01:49→07:35)
[2017-10-25] MEDS ORDERED: FONDAPARINUX 2.5 MG/0.5 ML SYRINGE SUBCUT SCH (06:00)
[2017-10-25 06:38] LABS: Basophils # 0.1 10*3/uL (0.0-0.2); Basophils % 0.6 % (0.0-0.8); Eosinophils # 0.4 10*3/uL (0.0-0.87); Eosinophils % 4.4 % (0.00-10.9); Hematocrit 28.9 VOL% (35.7-47.0); Immature Granulocytes % 0.4 %; Immature Granulocytes Absolute 0.03 #; Lymphocytes # 1.6 10*3/uL (1.4-4.0); Lymphocytes % 20.3 % (21.3-54.2); Mean Corpuscular HGB Conc 33.6 GM/DL (32-36); Mean Corpuscular Hemoglobin 35 PG (27-34); Mean Corpuscular Volume 104.7 FL (87-102); Mean Platelet Volume 11.5 FL (9.6-12.0); Monocytes # 1.1 10*3/uL (0.11-0.8); Monocytes % 13.5 % (1.7-12.7); Neutrophils # 4.9 10*3/uL (1.4-7.4); Neutrophils % 60.8 % (38.7-73.9); Red Blood Count 2.76 MC/CUMM (3.8-5.5); Red Cell Distribution Width 13.1 % (9.3-17.3)
[2017-10-25 06:47] LABS: Hemoglobin 9.7 GM/DL (12.0-16.0); Platelet Count 129 T/CUMM (130-400)
[2017-10-25 06:58] LABS: Calcium 8.2 MG/DL (8.5-10.1); Osmolality,Calculated 277.5 MOS/KG (273-304); Potassium 3.8 MMOL/L (3.5-5.1)
[2017-10-25] MEDS ORDERED: KETOROLAC 30 MG/1 ML VIAL IV ONE (07:30)
[2017-10-25] MEDS: KETOROLAC 30 MG/1 ML VIAL IV SCH (07:36)
[2017-10-25] MEDS: DOCUSATE SODIUM 100 MG CAPSULE PO SCH (10:08)
[2017-10-25] MEDS: POLYCARBOPHIL 625 MG TABLET PO SCH (10:08)
[2017-10-25] MEDS: VERAPAMIL SR 180 MG TABLET PO SCH (10:08)
[2017-10-25] MEDS: CHOLECALCIFEROL 1,000 UNIT TABLET PO SCH (10:08)
[2017-10-25] MEDS: ATENOLOL 50 MG TABLET PO SCH (10:09)
[2017-10-25 11:31] VITALS: BP 138/68
== END 2017-10-25 12:55 | disposition home health service (06) | DRG 470 ==
LOC: N.OR 05:43 → N.SDSINP 05:44 → N.3E 09:56
PROVIDERS: ADMIT Orthopaedic Surgery; ATTEND Orthopaedic Surgery